=== PATIENT | female | born 1955 | race American Indian/Alaskan Native ===

== ENCOUNTER 2017-10-01 13:45 | Emergency (ER) | payer MEDICAID ==
[2017-10-01 14:14] VITALS: BP 150/93
[2017-10-01] MEDS ORDERED: Sodium Chloride 0.9% 1,000 ML IV SCH (14:15)
--- NOTE | 2017-10-01 14:15 | EDM.PDOC ---
ED HPI GENERAL MEDICAL PROBLEM - General Chief Complaint: General Stated Complaint: NO PHONE PAIN IN YOUR SIDE Time Seen by Provider: 10/01/17 14:08 Source of Information: Reports: Patient, Family () History Limitations: Reports: No Limitations - History of Present Illness INITIAL COMMENTS - FREE TEXT/NARRATIVE: 62 yo [place] Female c/o right side chest pain X one week w/ fever and unknown cause for pain. Per Daughter patient has Hx. of multiple rib fractures Onset Date: 09/24/17 Onset Time: 08:00 Duration: Day(s): Location: Reports: Chest (right side) Quality: Reports: Ache Severity: Moderate Improves with: Reports: Rest Worsens with: Reports: Movement Context: Reports: Other (unknown) Associated Symptoms: Reports: cough w sputum, Fever/Chills Right Abdominal Pain Score (Numeric/FACES): 10 - Related Data Allergies Allergy/AdvReac Type Severity Reaction Status Date / Time adhesive tape Allergy Rash Verified 10/01/17 14:00 oxycodone Allergy Nausea and Verified 10/01/17 14:00 Vomiting Penicillins Allergy Rash Verified 10/01/17 14:00 piperacillin sodium Allergy Rash Verified 10/01/17 14:00 [From Zosyn] tazobactam sodium Allergy Rash Verified 10/01/17 14:00 [From Zosyn] Home Meds: Home Meds Multivitamin [Multivitamins] 1 tab PO DAILY 06/23/14 [History] ALPRAZolam [Alprazolam] 0.5 mg PO ASDIRECTED PRN 05/13/16 [History] Acetaminophen 650 mg PO Q6HR PRN 05/13/16 [History] Albuterol Sulfate 2.5 mg IH Q4HR PRN 05/13/16 [History] Amiodarone HCl 200 mg PO DAILY 05/13/16 [History] Aspirin [Ecotrin] 81 mg PO DAILY 05/13/16 [History] DULoxetine [Cymbalta] 30 mg PO DAILY 05/13/16 [History] Formoterol [Perforomist] 20 mcg NEB BIDRT 05/13/16 [History] Furosemide 40 mg PO DAILY 05/13/16 [History] Pantoprazole [ProTONIX] 40 mg PO DAILY 05/13/16 [History] Potassium Chloride 10 meq PO DAILY 05/13/16 [History] Pregabalin [Lyrica] 50 mg PO TID 05/13/16 [History] Rivaroxaban [Xarelto] 20 mg PO DAILY 05/13/16 [History] Sennosides/Docusate Sodium [Senna S Tablet] 2 tab PO BID 05/13/16 [History] Simvastatin 10 mg PO BEDTIME 05/13/16 [History] Tiotropium [Spiriva HandiHaler] 18 mcg INH DAILY 05/13/16 [History] Vitamin B Complex [B Complex] 1 tab PO WITHLUNCH 05/13/16 [History] rOPINIRole HCl [Ropinirole HCl] 0.5 mg PO BEDTIME 05/13/16 [History] DULoxetine [Cymbalta] 60 mg PO DAILY 03/30/17 [History] rOPINIRole [Requip] 0.25 mg PO DAILY 03/30/17 [History] Past Medical History Cardiovascular History: Reports: Afib, CAD, Cardiomyopathy, Heart Failure, High Cholesterol, Hypertension, SOB on Exertion Respiratory History: Reports: Asthma, Bronchitis, Recurrent, COPD, Interstitial Lung Disease, Pneumonia, Recurrent, Sleep Apnea, SOB Gastrointestinal History: Reports: GERD Genitourinary History: Reports: Urinary Incontinence, Other (See Below) Other Genitourinary History: elevated BUN Other OB/BYN History: no Musculoskeletal History: Reports: Osteoarthritis Other Musculoskeletal History: chronic pain lower extremties, opoid dependence, ccomplete tear of rotator cuff, impaired activities of daily living Neurological History: Reports: CVA, Neuropathy, Diabetic Psychiatric History: Reports: Anxiety, Depression Endocrine/Metabolic History: Reports: Diabetes, Type II, IDDM, Obesity/BMI 30+ Hematologic History: Reports: Other (See Below) Other Hematologic History: leukocytosis Dermatologic History: Reports: Venous Stasis Dermatitis, Other (See Below) Other Dermatologic History: non-healing wounds to posterior right calf and abdominal folds. statis ulcers - Infectious Disease History Infectious Disease History: Reports: MRSA - Past Surgical History Cardiovascular Surgical History: Reports: Other (See Below) Social & Family History - Family History Family Medical History: Noncontributory - Tobacco Use Smoking Status *Q: Current Some Day Smoker Years of Tobacco use: 40 Packs/Tins Daily: 2 Used Tobacco, but Quit: Yes Month Tobacco Last Used: oct 2015 Second Hand Smoke Exposure: Yes - Caffeine Use Caffeine Use: Reports: Coffee, Soda - Alcohol Use Days Per Week of Alcohol Use: 0 - Recreational Drug Use Recreational Drug Use: No Drug Use in Last 12 Months: No - Living Situation & Occupation Living situation: Reports: , with Family Occupation: Disabled ED ROS GENERAL - Review of Systems Review Of Systems: See Below Constitutional: Reports: Fever HEENT: Reports: No Symptoms Respiratory: Reports: Cough, Sputum Cardiovascular: Reports: No Symptoms Endocrine: Reports: No Symptoms GI/Abdominal: Reports: No Symptoms : Reports: No Symptoms Musculoskeletal: Reports: Other (right chest wall) Skin: Reports: No Symptoms Neurological: Reports: No Symptoms Psychiatric: Reports: No Symptoms Hematologic/Lymphatic: Reports: No Symptoms Immunologic: Reports: No Symptoms ED EXAM, GENERAL - Physical Exam Exam: See Below Exam Limited By: No Limitations General Appearance: Alert, No Apparent Distress, Obese Eye Exam: Bilateral Eye: EOMI, PERRL Ears: Normal External Exam Nose: Normal Inspection, Normal Mucosa Throat/Mouth: Normal Inspection, Normal Lips Head: Atraumatic, Normocephalic Neck: Normal Inspection Respiratory/Chest: No Respiratory Distress, Rhonchi, Other (right side lateral chest wall tenderness) Cardiovascular: Normal Peripheral Pulses, Regular Rate, Rhythm, No Edema Peripheral Pulses: 2+: Radial (L), Radial (R) GI/Abdominal: Normal Bowel Sounds, Soft, Non-Tender Back Exam: Normal Inspection, Full Range of Motion Extremities: Normal Inspection, Normal Range of Motion Neurological: Alert, Oriented, CN II-XII Intact, Normal Cognition Psychiatric: Normal Affect, Normal Mood Skin Exam: Warm, Dry, Intact, Normal Color Lymphatic: No Adenopathy Course - Vital Signs Text/Narrative:: Chest CT - No Acute Changes + old rib fractures Labs and Urine Negative Last Recorded V/S: Last Vital Signs Temp 36.3 C 10/01/17 14:11 Pulse 92 10/01/17 14:11 Resp 18 10/01/17 14:11 BP 150/93 H 10/01/17 14:11 Pulse Ox 97 10/01/17 14:11 - Orders/Labs/Meds Orders: Active Orders 24 hr Category Date Time Status EKG Documentation Completion [RC] STAT Care 10/01/17 14:10 Active CULTURE BLOOD [BC] Stat Lab 10/01/17 14:30 Received CULTURE BLOOD [BC] Stat Lab 10/01/17 15:09 Received CULTURE SPUTUM + SMEAR [RM] Stat Lab 10/01/17 14:12 Uncollected Sodium Chloride 0.9% [Normal Saline] 1,000 ml Med 10/01/17 14:15 Active IV ASDIRECTED Medication Orders Sodium Chloride (Normal Saline) 1,000 mls @ 100 mls/hr IV ASDIRECTED DANIELLE Last Admin: 10/01/17 15:17 Dose: 100 mls/hr Labs: Laboratory Tests 10/01/17 10/01/17 10/01/17 Range/Units 14:30 14:30 14:30 WBC 11.9 H (5.0-10.0) 10^3/uL RBC 4.81 (4.2-5.4) 10^6/uL Hgb 14.2 (12.0-16.0) g/dL Hct 43.1 (37.0-47.0) % MCV 89.6 (80-100) fL MCH 29.5 (27.0-34.0) pg MCHC 32.9 L (33.0-35.0) g/dL Plt Count 292 D (150-450) 10^3/uL Neut % (Auto) 60.8 (42.2-75.2) % Lymph % (Auto) 27.5 (20.5-50.1) % [place] % (Auto) 9.0 H (2-8) % Eos % (Auto) 2.4 (1.0-3.0) % Baso % (Auto) 0.3 (0.0-1.0) % D-Dimer, Quantitative (0-400) ng/mL Sodium 137 (135-145) mmol/L Potassium 3.9 (3.6-5.0) mmol/L Chloride 100 L (101-111) mmol/L Carbon Dioxide 26.0 (21.0-31.0) mmol/L Anion Gap 14.9 BUN 15 (7-18) mg/dL Creatinine 0.7 (0.6-1.3) mg/dL Est Cr Clr Drug Dosing 70.70 mL/min Estimated GFR (MDRD) > 60 BUN/Creatinine Ratio 21.42 Glucose 93 (74-105) mg/dL Lactic Acid 0.6 (0.5-2.2) mmol/L Calcium 9.1 (8.4-10.2) mg/dl Total Bilirubin 0.3 (0.2-1.0) mg/dL AST 19 (10-42) IU/L ALT 15 (10-60) IU/L Alkaline Phosphatase 108 (42-121) IU/L Troponin I 0.02 (0.00-0.02) ng/ml Total Protein 7.9 (6.7-8.2) g/dl Albumin 4.0 (3.2-5.5) g/dl Globulin 3.9 Albumin/Globulin Ratio 1.03 Urine Color (YELLOW) Urine Appearance (CLEAR) Urine pH (5.0-9.0) Ur Specific [place] (1.005-1.030) Urine Protein (NEGATIVE) Urine Glucose (UA) (NEGATIVE) Urine Ketones (NEGATIVE) Urine Occult Blood (NEGATIVE) Urine Nitrite (NEGATIVE) Urine Bilirubin (NEGATIVE) Urine Urobilinogen (0.2-1.0) mg/dL Ur Leukocyte Esterase (NEGATIVE) Urine RBC /HPF Urine WBC (0-5/HPF) /HPF Ur Epithelial Cells /HPF Urine Bacteria (0-FEW/HPF) /HPF 10/01/17 10/01/17 Range/Units 14:30 15:18 WBC (5.0-10.0) 10^3/uL RBC (4.2-5.4) 10^6/uL Hgb (12.0-16.0) g/dL Hct (37.0-47.0) % MCV (80-100) fL MCH (27.0-34.0) pg MCHC (33.0-35.0) g/dL Plt Count (150-450) 10^3/uL Neut % (Auto) (42.2-75.2) % Lymph % (Auto) (20.5-50.1) % [place] % (Auto) (2-8) % Eos % (Auto) (1.0-3.0) % Baso % (Auto) (0.0-1.0) % D-Dimer, Quantitative < 100 (0-400) ng/mL Sodium (135-145) mmol/L Potassium (3.6-5.0) mmol/L Chloride (101-111) mmol/L Carbon Dioxide (21.0-31.0) mmol/L Anion Gap BUN (7-18) mg/dL Creatinine (0.6-1.3) mg/dL Est Cr Clr Drug Dosing mL/min Estimated GFR (MDRD) BUN/Creatinine Ratio Glucose (74-105) mg/dL Lactic Acid (0.5-2.2) mmol/L Calcium (8.4-10.2) mg/dl Total Bilirubin (0.2-1.0) mg/dL AST (10-42) IU/L ALT (10-60) IU/L Alkaline Phosphatase (42-121) IU/L Troponin I (0.00-0.02) ng/ml Total Protein (6.7-8.2) g/dl Albumin (3.2-5.5) g/dl Globulin Albumin/Globulin Ratio Urine Color Yellow (YELLOW) Urine Appearance Clear (CLEAR) Urine pH 7.0 (5.0-9.0) Ur Specific [place] 1.010 (1.005-1.030) Urine Protein Negative (NEGATIVE) Urine Glucose (UA) Negative (NEGATIVE) Urine Ketones Negative (NEGATIVE) Urine Occult Blood Negative (NEGATIVE) Urine Nitrite Negative (NEGATIVE) Urine Bilirubin Negative (NEGATIVE) Urine Urobilinogen 0.2 (0.2-1.0) mg/dL Ur Leukocyte Esterase Negative (NEGATIVE) Urine RBC Not seen /HPF Urine WBC Not seen (0-5/HPF) /HPF Ur Epithelial Cells Rare /HPF Urine Bacteria Rare (0-FEW/HPF) /HPF Meds: Medications Generic Name Dose Route Start Last Admin Trade Name Freq PRN Reason Stop Dose Admin Sodium Chloride 1,000 mls @ 100 mls/hr 10/01/17 14:15 10/01/17 15:17 Normal Saline IV 100 mls/hr ASDIRECTED DANIELLE Administration Discontinued Medications Generic Name Dose Route Start Last Admin Trade Name Freq PRN Reason Stop Dose Admin Hydromorphone HCl 1 mg 10/01/17 14:17 10/01/17 14:41 Dilaudid IVPUSH 10/01/17 14:18 1 mg ONETIME ONE Administration Departure - Departure Time of Disposition: 15:41 Disposition: Home, Self-Care 01 Condition: Good Clinical Impression: Right-sided chest wall pain, Muscle strain - Discharge Information Instructions: Pain Medicine Instructions, [id number] Forms: ED Department Discharge Additional Instructions: Rest Increase intake of Fluids ( Juice / Water) Apply Moist Heat to Right Lateral Chest Wall TID X 15 mins. No Lifting, Pulling or Pushing For right chest wall pain: TRAMADOL 50mg TID # 30 FLEXERIL 5mg BID # 20 MOTRIN 600mg TID w/ Food # 30 F/U w/ PCP - My Orders Last 24 Hours: My Active Orders 10/01/17 14:10 EKG Documentation Completion [RC] STAT 10/01/17 14:12 CULTURE SPUTUM + SMEAR [RM] Stat 10/01/17 14:15 Sodium Chloride 0.9% [Normal Saline] 1,000 ml IV ASDIRECTED 10/01/17 14:30 CULTURE BLOOD [BC] Stat 10/01/17 15:09 CULTURE BLOOD [BC] Stat - Assessment/Plan Last 24 Hours: My Active Orders 10/01/17 14:10 EKG Documentation Completion [RC] STAT 10/01/17 14:12 CULTURE SPUTUM + SMEAR [RM] Stat 10/01/17 14:15 Sodium Chloride 0.9% [Normal Saline] 1,000 ml IV ASDIRECTED 10/01/17 14:30 CULTURE BLOOD [BC] Stat 10/01/17 15:09 CULTURE BLOOD [BC] Stat
[2017-10-01] MEDS ORDERED: HYDROmorphone 1 MG/ML Syringe IVPUSH ONE (14:17)
[2017-10-01 15:35] LABS: CHLORIDE,CL 100 mmol/L (101-111); SODIUM,NA 137 mmol/L (135-145)
--- NOTE | 2017-10-05 09:16 | EKG ---
10/01/2017- DAVID GALLARDO - EKG per my reading shows sinus rhythm at a rate of [address] changes. [facility] /[id number]
== END 2017-10-01 16:00 | disposition home or self-care (01) ==
LOC: DL.ED 13:45
DX: S29.011A Strain of muscle and tendon of front wall of thorax, initial encounter (principal); F17.210 Nicotine dependence, cigarettes, uncomplicated; I11.0 Hypertensive heart disease with heart failure; I50.9 Heart failure, unspecified; K21.9 Gastro-esophageal reflux disease without esophagitis; E11.40 Type 2 diabetes mellitus with diabetic neuropathy, unspecified; F32.9 Major depressive disorder, single episode, unspecified; J44.9 Chronic obstructive pulmonary disease, unspecified; Z79.82 Long term (current) use of aspirin; Z79.899 Other long term (current) drug therapy; Z88.0 Allergy status to penicillin; Z88.6 Allergy status to analgesic agent; Z88.8 Allergy status to other drugs, medicaments and biological substances; Z91.048 Other nonmedicinal substance allergy status; X58.XXXA Exposure to other specified factors, initial encounter; E78.00 Pure hypercholesterolemia, unspecified
CPT/HCPCS: 36415; 71250; 80053; 81001; 83605; 84484; 85025; 85379; 87040; 93005; 96361; 96374; 99284; J1170; J7030

== ENCOUNTER 2019-08-04 14:20 | Inpatient (IN) | payer MEDICAID ==
[~2019-08-04 14:20] MED LIST: Sodium Chloride 0.9% 10 ML Syringe FLUSH PRN
--- NOTE | 2019-08-04 14:39 | EDM.PDOC ---
ED HPI GENERAL MEDICAL PROBLEM - General Chief Complaint: Skin Complaint Stated Complaint: AMBULANCE Time Seen by Provider: 08/04/19 14:20 Source of Information: Reports: Patient, EMS, EMS Notes Reviewed, Family, RN, RN Notes Reviewed History Limitations: Reports: Physical Impairment (right sided residual weakness from previous stroke (2014)) - History of Present Illness INITIAL COMMENTS - FREE TEXT/NARRATIVE: Pt to ER per [facility] with c/o cellulitis of the right upper thigh. States she woke up this morning with redness and tenderness to the right upper leg. Denies recent fever or chills. States she was vomiting last night. Denies chest pains. No increased SOB. States she has a hx of stroke in 2015, COPD, right sided residual weakness from stroke. Also states she has a chronic sore to the right lower leg from a spider bite 22 years ago. Denies pain. Onset: Today Duration: Constant, Getting Worse Location: Reports: Upper Extremity, Right - Related Data Allergies Allergy/AdvReac Type Severity Reaction Status Date / Time adhesive tape Allergy Rash Verified 08/04/19 14:23 oxycodone Allergy Nausea and Verified 08/04/19 14:23 Vomiting Penicillins Allergy Rash Verified 08/04/19 14:23 piperacillin sodium Allergy Rash Verified 08/04/19 14:23 [From Zosyn] tazobactam sodium Allergy Rash Verified 08/04/19 14:23 [From Zosyn] Home Meds: Home Meds Albuterol [Ventolin HFA] 1 puff INH Q4H PRN 06/04/19 [History] Amiodarone [Cordarone] 200 mg PO DAILY 06/04/19 [History] Aspirin [Halfprin] 81 mg PO DAILY 06/04/19 [History] DULoxetine [Cymbalta] 60 mg PO DAILY 06/04/19 [History] Furosemide [Lasix] 20 mg PO DAILY 06/04/19 [History] Potassium Chloride 10 meq PO DAILY 06/04/19 [History] Rivaroxaban [Xarelto] 20 mg PO DAILY 06/04/19 [History] Simvastatin 10 mg PO BEDTIME 06/04/19 [History] Tiotropium [Spiriva Handihaler] 1 puff INH BID 06/04/19 [History] Past Medical History Cardiovascular History: Reports: Afib, CAD, Cardiomyopathy, Heart Failure, High Cholesterol, Hypertension, SOB on Exertion Respiratory History: Reports: Asthma, Bronchitis, Recurrent, COPD, Interstitial Lung Disease, Pneumonia, Recurrent, Sleep Apnea, SOB Gastrointestinal History: Reports: GERD Genitourinary History: Reports: Urinary Incontinence, Other (See Below) Other Genitourinary History: elevated BUN Other SCHOOL PSYCHOLOGIST History: no Musculoskeletal History: Reports: Osteoarthritis Other Musculoskeletal History: chronic pain lower extremties, opoid dependence, ccomplete tear of rotator cuff, impaired activities of daily living Neurological History: Reports: CVA, Neuropathy, Diabetic Psychiatric History: Reports: Anxiety, Depression Endocrine/Metabolic History: Reports: Diabetes, Type II, IDDM, Obesity/BMI 30+ Hematologic History: Reports: Other (See Below) Other Hematologic History: leukocytosis Dermatologic History: Reports: Venous Stasis Dermatitis, Other (See Below) Other Dermatologic History: non-healing wounds to posterior right calf and abdominal folds. statis ulcers - Infectious Disease History Infectious Disease History: Reports: MRSA - Past Surgical History Cardiovascular Surgical History: Reports: Other (See Below) Social & Family History - Family History Family Medical History: Noncontributory - Caffeine Use Caffeine Use: Reports: Coffee, Soda - Living Situation & Occupation Living situation: Reports: , with Family Occupation: Disabled ED ROS GENERAL - Review of Systems Review Of Systems: ROS reveals no pertinent complaints other than HPI. ED EXAM, SKIN/RASH Exam: See Below Exam Limited By: Physical Impairment (residual right sided weakness from previous stroke) General Appearance: Alert, WD/WN, Mild Distress, Obese Eye Exam: Bilateral Eye: EOMI, Normal Inspection Ears: Normal External Exam, Hearing Grossly Normal Nose: Normal Inspection Throat/Mouth: Normal Inspection, Normal Voice, No Airway Compromise Head: Atraumatic Neck: Normal Inspection, Supple, Non-Tender, Full Range of Motion Respiratory/Chest: No Respiratory Distress, No Accessory Muscle Use, Chest Non- Tender, Crackles (left lower lobe) Cardiovascular: Normal Peripheral Pulses, Regular Rate, Rhythm, No Gallop, No JVD, No Murmur, No Rub, Other (ankle edema +2 bilaterally) Peripheral Pulses: 2+: Radial (L), Radial (R), Dorsalis Pedis (L), Dorsalis Pedis (R) GI/Abdominal: Normal Bowel Sounds, Soft, Non-Tender (Female) Exam: Deferred Rectal (Female) Exam: Deferred Back Exam: Normal Inspection, Decreased Range of Motion Extremities: Normal Inspection, Non-Tender, Normal Capillary Refill, Limited Range of Motion (right), Increased Warmth (right thigh), Redness (right thigh) Neurological: Alert, Oriented, CN II-XII Intact, Normal Cognition Psychiatric: Normal Affect, Normal Mood Skin: Warm, Dry, Intact, Erythema (right thigh), Increased Warmth (right thigh) Location, Skin: Lower Extremity, Right Characteristics: Erythematous Associated features: Warmth, Tenderness, Swelling Lymphatic: No Adenopathy Course - Vital Signs Last Recorded V/S: Last Vital Signs Temp 97.0 F 08/04/19 14:24 Pulse 73 08/04/19 14:24 Resp 16 08/04/19 14:24 BP 115/75 08/04/19 14:24 Pulse Ox 94 L 08/04/19 14:24 - Orders/Labs/Meds Orders: Active Orders 24 hr Category Date Time Status Admission Diagnosis [ADT] Routine ADT 08/04/19 15:22 Ordered Admission Status [Patient Status] [ADT] Routine ADT 08/04/19 15:22 Active Peripheral IV Care [RC] . DIRECTED Care 08/04/19 14:15 Active CULTURE BLOOD [BC] Stat Lab 08/04/19 14:25 Received CULTURE BLOOD [BC] Stat Lab 08/04/19 14:30 Received Sodium Chloride 0.9% [Saline Flush] Med 08/04/19 14:14 Active 10 ml FLUSH ASDIRECTED PRN Vancomycin 1.5 gm Med 08/04/19 15:18 Active Sodium Chloride 0.9% [Normal Saline] 250 ml IV ONETIME Blood Culture x2 Reflex Set [OM.PC] Stat Oth 08/04/19 14:14 Ordered Peripheral IV Insertion Adult [OM.PC] Stat Oth 08/04/19 14:14 Ordered Medication Orders Vancomycin HCl 1.5 gm/ Sodium (Chloride) 250 mls @ 167 mls/hr IV ONETIME ONE Stop: 08/04/19 16:47 Sodium Chloride (Saline Flush) 10 ml FLUSH ASDIRECTED PRN PRN Reason: Keep Vein Open Last Admin: 08/04/19 14:38 Dose: 10 ml Labs: Laboratory Tests 08/04/19 08/04/19 08/04/19 Range/Units 14:25 14:25 14:25 WBC 19.4 H (5.0-10.0) 10^3/uL RBC 4.85 (4.2-5.4) 10^6/uL Hgb 14.1 (12.0-16.0) g/dL Hct 44.1 (37.0-47.0) % MCV 90.9 (80-100) fL MCH 29.1 (27.0-34.0) pg MCHC 32.0 L (33.0-35.0) g/dL Plt Count 200 D (150-450) 10^3/uL Neut % (Auto) 79.4 H (42.2-75.2) % Lymph % (Auto) 14.7 L (20.5-50.1) % [place] % (Auto) 5.6 (2-8) % Eos % (Auto) 0.2 L (1.0-3.0) % Baso % (Auto) 0.1 (0.0-1.0) % D-Dimer, Quantitative (0-400) ng/mL Sodium 135 (135-145) mmol/L Potassium 3.3 L (3.6-5.0) mmol/L Chloride 98 L (101-111) mmol/L Carbon Dioxide 28.0 (21.0-31.0) mmol/L Anion Gap 12.3 BUN 22 H (7-18) mg/dL Creatinine 0.7 (0.6-1.3) mg/dL Est Cr Clr Drug Dosing 79.01 mL/min Estimated GFR (MDRD) > 60 BUN/Creatinine Ratio 31.42 Glucose 83 (74-105) mg/dL Lactic Acid 1.2 (0.5-2.2) mmol/L Calcium 8.7 (8.4-10.2) mg/dl Total Bilirubin 0.5 (0.2-1.0) mg/dL AST 16 (10-42) IU/L ALT 11 (10-60) IU/L Alkaline Phosphatase 87 (42-121) IU/L Total Protein 7.8 (6.7-8.2) g/dl Albumin 3.7 (3.2-5.5) g/dl Globulin 4.1 Albumin/Globulin Ratio 0.90 // Range/Units 14:25 WBC (5.0-10.0) 10^3/uL RBC (4.2-5.4) 10^6/uL Hgb (12.0-16.0) g/dL Hct (37.0-47.0) % MCV (80-100) fL MCH (27.0-34.0) pg MCHC (33.0-35.0) g/dL Plt Count (150-450) 10^3/uL Neut % (Auto) (42.2-75.2) % Lymph % (Auto) (20.5-50.1) % [place] % (Auto) (2-8) % Eos % (Auto) (1.0-3.0) % Baso % (Auto) (0.0-1.0) % D-Dimer, Quantitative < 100 (0-400) ng/mL Sodium (135-145) mmol/L Potassium (3.6-5.0) mmol/L Chloride (101-111) mmol/L Carbon Dioxide (21.0-31.0) mmol/L Anion Gap BUN (7-18) mg/dL Creatinine (0.6-1.3) mg/dL Est Cr Clr Drug Dosing mL/min Estimated GFR (MDRD) BUN/Creatinine Ratio Glucose (74-105) mg/dL Lactic Acid (0.5-2.2) mmol/L Calcium (8.4-10.2) mg/dl Total Bilirubin (0.2-1.0) mg/dL AST (10-42) IU/L ALT (10-60) IU/L Alkaline Phosphatase (42-121) IU/L Total Protein (6.7-8.2) g/dl Albumin (3.2-5.5) g/dl Globulin Albumin/Globulin Ratio Meds: Medications Generic Name Dose Route Start Last Admin Trade Name Freq PRN Reason Stop Dose Admin Vancomycin HCl 1.5 gm/ Sodium 250 mls @ 167 mls/hr 08/04/19 15:18 Chloride IV 08/04/19 16:47 ONETIME ONE Sodium Chloride 10 ml 08/04/19 14:14 08/04/19 14:38 Saline Flush FLUSH 10 ml ASDIRECTED PRN Administration Keep Vein Open - Radiology Interpretation Free Text/Narrative:: Chest xray: See rad report - Re-Assessments/Exams Free Text/Narrative Re-Assessment/Exam: 08/04/19 15:22 Discussed patient case with Dr. Moy who agreed to accept the patient for inpatient admission. Departure - Departure Time of Disposition: 15:25 Disposition: Admitted As Inpatient 68 Condition: Fair Clinical Impression: Cellulitis Qualifiers: Site of cellulitis: extremity Site of cellulitis of extremity: lower extremity Laterality: right Qualified Code(s): L03.115 - Cellulitis of right lower limb - Discharge Information *PRESCRIPTION DRUG MONITORING PROGRAM REVIEWED*: No *COPY OF PRESCRIPTION DRUG MONITORING REPORT IN PATIENT MULU: No Forms: ED Department Discharge - My Orders Last 24 Hours: My Active Orders 08/04/19 14:14 Sodium Chloride 0.9% [Saline Flush] 10 ml FLUSH ASDIRECTED PRN Blood Culture x2 Reflex Set [OM.PC] Stat Peripheral IV Insertion Adult [OM.PC] Stat 08/04/19 14:15 Peripheral IV Care [RC] . DIRECTED 08/04/19 14:25 CULTURE BLOOD [BC] Stat 08/04/19 14:30 CULTURE BLOOD [BC] Stat 08/04/19 15:18 Vancomycin 1.5 gm Sodium Chloride 0.9% [Normal Saline] 250 ml IV ONETIME 08/04/19 15:22 Admission Diagnosis [ADT] Routine Admission Status [Patient Status] [ADT] Routine - Assessment/Plan Last 24 Hours: My Active Orders 08/04/19 14:14 Sodium Chloride 0.9% [Saline Flush] 10 ml FLUSH ASDIRECTED PRN Blood Culture x2 Reflex Set [OM.PC] Stat Peripheral IV Insertion Adult [OM.PC] Stat 08/04/19 14:15 Peripheral IV Care [RC] . DIRECTED 08/04/19 14:25 CULTURE BLOOD [BC] Stat 08/04/19 14:30 CULTURE BLOOD [BC] Stat 08/04/19 15:18 Vancomycin 1.5 gm Sodium Chloride 0.9% [Normal Saline] 250 ml IV ONETIME 08/04/19 15:22 Admission Diagnosis [ADT] Routine Admission Status [Patient Status] [ADT] Routine
[2019-08-04 14:58] LABS: ANION GAP 12.3; CHLORIDE,CL 98 mmol/L (101-111); SODIUM,NA 135 mmol/L (135-145)
--- NOTE | 2019-08-04 15:22 | CR ---
EXAMINATION: Chest 1V Frontal SEX: Female AGE: 63 years CLINICAL HISTORY: 63-year-old morbidly obese female complaining of chest pain (emergency department). INTERPRETATION: 1. Generally poor inspiratory effort crowding and accentuating the cardiac silhouette but no new signs of alveolar edema, dependent pleural effusion, lung mass or focal lobar pneumonia when compared AP film 13 October 2016 or 02 July 2016. 2. Old healed posterior lateral upper left rib fracture. 3. Prominent proximal pulmonary artery segments. No new lung mass or focal lobar pneumonia. 4. No pneumothorax. CONCLUSION: No acute new cardiopulmonary abnormality.
[2019-08-04] MEDS ORDERED: Ondansetron 4 MG/2 ML SDV IV PRN (16:13)
[2019-08-04] MEDS ORDERED: Potassium Chloride 10 MEQ Tab.ER PO ONE ×3 (16:13→19:00)
[2019-08-04] MEDS ORDERED: Acetaminophen 325 MG Tab PO PRN (16:13)
[2019-08-04] MEDS ORDERED: Sodium Chloride 0.9% 10 ML Syringe FLUSH PRN (16:19)
[2019-08-04] MEDS: Insulin Lispro 100 Units/ML 3 ML Vial SUBCUT SCH ×2 (16:54→21:05)
[2019-08-04] MEDS ORDERED: VANCOMYCIN/WATER FOR INJ (PEG) 300 ML IV SCH (17:00)
--- NOTE | 2019-08-04 17:02 | PCM.HP ---
H&P History of Present Illness - General Date of Service: 08/04/19 Admit Problem/Dx: Admission Diagnosis/Problem Admission Diagnosis/Problem Cellulitis Source of Information: Patient ( ) History Limitations: Reports: Other (speech impediment, from residual stroke) - History of Present Illness Initial Comments - Free Text/Narative: 63 yo F with PMH of CVA with residual deficits, COPD, HTN, DM2, who presents with right inner thigh redness, pain, swelling. Patient noticed right inner thigh redness, pain, swelling this morning. Associated chills/fever. No chest pain, no SOB, no urinary symptoms. Also has fungal infection in skin creases of the groin In the ER, found to have leukocytosis, hypokalemia in lab work. She has had recurrent episodes of cellulitis in the past treated successfully with antibiotics. Improves with: Reports: None Worsens with: Reports: None Associated Symptoms: Reports: No Other Symptoms - Related Data Allergies/Adverse Reactions: Allergies Allergy/AdvReac Type Severity Reaction Status Date / Time adhesive tape Allergy Rash Verified 08/04/19 15:47 oxycodone Allergy Nausea and Verified 08/04/19 15:47 Vomiting Penicillins Allergy Rash Verified 08/04/19 15:47 piperacillin sodium Allergy Rash Verified 08/04/19 15:47 [From Zosyn] tazobactam sodium Allergy Rash Verified 08/04/19 15:47 [From Zosyn] Home Medications: Home Meds Albuterol [Ventolin HFA] 1 puff INH Q4H PRN 06/04/19 [History] Amiodarone [Cordarone] 200 mg PO DAILY 06/04/19 [History] Aspirin [Halfprin] 81 mg PO DAILY 06/04/19 [History] DULoxetine [Cymbalta] 60 mg PO DAILY 06/04/19 [History] Furosemide [Lasix] 20 mg PO DAILY 06/04/19 [History] Potassium Chloride 10 meq PO DAILY 06/04/19 [History] Rivaroxaban [Xarelto] 20 mg PO DAILY 06/04/19 [History] Simvastatin 10 mg PO BEDTIME 06/04/19 [History] Tiotropium [Spiriva Handihaler] 1 puff INH DAILY 06/04/19 [History] Cholecalciferol (Vitamin D3) [Vitamin D] 1 tab PO DAILY 08/04/19 [History] Fish Oil/[place]-3 Fatty Acids [Fish Oil 1,000 MG] 1 cap PO DAILY 08/04/19 [ History] Past Medical History HEENT History: Reports: Impaired Vision Cardiovascular History: Reports: Afib, CAD, Cardiomyopathy, Heart Failure, High Cholesterol, Hypertension, SOB on Exertion Respiratory History: Reports: Asthma, Bronchitis, Recurrent, COPD, Interstitial Lung Disease, Pneumonia, Recurrent, Sleep Apnea, SOB Gastrointestinal History: Reports: GERD Genitourinary History: Reports: Urinary Incontinence, Other (See Below) Other Genitourinary History: elevated BUN [employer] History: Reports: Other OB/BYN History: no Musculoskeletal History: Reports: Osteoarthritis Other Musculoskeletal History: chronic pain lower extremties, opoid dependence, ccomplete tear of rotator cuff, impaired activities of daily living Neurological History: Reports: CVA, Neuropathy, Diabetic Psychiatric History: Reports: Anxiety, Depression Endocrine/Metabolic History: Reports: Diabetes, Type II, IDDM, Obesity/BMI 30+ Hematologic History: Reports: Other (See Below) Other Hematologic History: leukocytosis Immunologic History: Reports: None Dermatologic History: Reports: Venous Stasis Dermatitis, Other (See Below) Other Dermatologic History: non-healing wounds to posterior right calf and abdominal folds. statis ulcers - Infectious Disease History Infectious Disease History: Reports: Chicken Pox, MRSA - Past Surgical History Other Cardiovascular Surgeries/Procedures: Patient denies CAD, cardiomyopathy, heart failure, high cholesterol, hypertension, and SOB- 08/04/19 Other Respiratory Surgeries/Procedures: Denies Asthma, bronchitis- 08/04/19 Other GI Surgeries/Procedures: denies gerd- 08/04/19 Other Endocrine Surgeries/Procedures: Denies DMII- 08-04-19 Other Neurological Surgeries/Procedures: Denies neuropathy Social & Family History - Family History Family Medical History: Noncontributory - Tobacco Use Smoking Status *Q: Current Every Day Smoker Years of Tobacco use: 40 Packs/Tins Daily: 1 Second Hand Smoke Exposure: Yes - Caffeine Use Caffeine Use: Reports: Tea - Recreational Drug Use Recreational Drug Use: No - Living Situation & Occupation Living situation: Reports: , with Family Occupation: Disabled H&P Review of Systems - Review of Systems: Review Of Systems: ROS reveals no pertinent complaints other than HPI. General: Reports: Fever HEENT: Reports: No Symptoms Pulmonary: Reports: No Symptoms Cardiovascular: Reports: No Symptoms Gastrointestinal: Reports: No Symptoms Genitourinary: Reports: No Symptoms Musculoskeletal: Reports: No Symptoms Skin: Reports: Rash Psychiatric: Reports: No Symptoms Neurological: Reports: No Symptoms Exam - Exam Exam: See Below - Vital Signs Vital Signs: Last Vital Signs Temp 35.9 C 08/04/19 16:20 Pulse 72 08/04/19 16:20 Resp 20 08/04/19 16:20 BP 110/55 L 08/04/19 16:20 Pulse Ox 94 L 08/04/19 16:20 Weight: 110.677 kg - Exam General: Alert, Oriented HEENT: Conjunctiva Clear Neck: Supple, Trachea Midline Lungs: Clear to Auscultation, Normal Respiratory Effort Cardiovascular: Regular Rate, Regular Rhythm, Normal S1, Normal S2 GI/Abdominal Exam: Normal Bowel Sounds, Soft, Non-Tender, No Organomegaly Extremities: Redness Skin: Rash Neuro Extensive - Mental Status: Alert, Oriented x3, Normal Mood/Affect, Normal Cognition, Memory Intact - Patient Data Lab Results Last 24 hrs: Laboratory Results - last 24 hr 08/04/19 08/04/19 08/04/19 Range/Units 14:25 14:25 14:25 WBC 19.4 H (5.0-10.0) 10^3/uL RBC 4.85 (4.2-5.4) 10^6/uL Hgb 14.1 (12.0-16.0) g/dL Hct 44.1 (37.0-47.0) % MCV 90.9 (80-100) fL MCH 29.1 (27.0-34.0) pg MCHC 32.0 L (33.0-35.0) g/dL Plt Count 200 D (150-450) 10^3/uL Neut % (Auto) 79.4 H (42.2-75.2) % Lymph % (Auto) 14.7 L (20.5-50.1) % Schleicher % (Auto) 5.6 (2-8) % Eos % (Auto) 0.2 L (1.0-3.0) % Baso % (Auto) 0.1 (0.0-1.0) % D-Dimer, Quantitative (0-400) ng/mL Sodium 135 (135-145) mmol/L Potassium 3.3 L (3.6-5.0) mmol/L Chloride 98 L (101-111) mmol/L Carbon Dioxide 28.0 (21.0-31.0) mmol/L Anion Gap 12.3 BUN 22 H (7-18) mg/dL Creatinine 0.7 (0.6-1.3) mg/dL Est Cr Clr Drug Dosing 79.01 mL/min Estimated GFR (MDRD) > 60 BUN/Creatinine Ratio 31.42 Glucose 83 (74-105) mg/dL POC Glucose (70-105) mg/dl Lactic Acid 1.2 (0.5-2.2) mmol/L Calcium 8.7 (8.4-10.2) mg/dl Total Bilirubin 0.5 (0.2-1.0) mg/dL AST 16 (10-42) IU/L ALT 11 (10-60) IU/L Alkaline Phosphatase 87 (42-121) IU/L Total Protein 7.8 (6.7-8.2) g/dl Albumin 3.7 (3.2-5.5) g/dl Globulin 4.1 Albumin/Globulin Ratio 0.90 08/04/19 08/04/19 Range/Units 14:25 16:44 WBC (5.0-10.0) 10^3/uL RBC (4.2-5.4) 10^6/uL Hgb (12.0-16.0) g/dL Hct (37.0-47.0) % MCV (80-100) fL MCH (27.0-34.0) pg MCHC (33.0-35.0) g/dL Plt Count (150-450) 10^3/uL Neut % (Auto) (42.2-75.2) % Lymph % (Auto) (20.5-50.1) % Schleicher % (Auto) (2-8) % Eos % (Auto) (1.0-3.0) % Baso % (Auto) (0.0-1.0) % D-Dimer, Quantitative < 100 (0-400) ng/mL Sodium (135-145) mmol/L Potassium (3.6-5.0) mmol/L Chloride (101-111) mmol/L Carbon Dioxide (21.0-31.0) mmol/L Anion Gap BUN (7-18) mg/dL Creatinine (0.6-1.3) mg/dL Est Cr Clr Drug Dosing mL/min Estimated GFR (MDRD) BUN/Creatinine Ratio Glucose (74-105) mg/dL POC Glucose 95 (70-105) mg/dl Lactic Acid (0.5-2.2) mmol/L Calcium (8.4-10.2) mg/dl Total Bilirubin (0.2-1.0) mg/dL AST (10-42) IU/L ALT (10-60) IU/L Alkaline Phosphatase (42-121) IU/L Total Protein (6.7-8.2) g/dl Albumin (3.2-5.5) g/dl Globulin Albumin/Globulin Ratio Result Diagrams: 08/04/19 14:25 08/04/19 14:25 Problem List Initiated/Reviewed/Updated: Yes Orders Last 24hrs: Active Orders 24 hr Category Date Time Status Admission Diagnosis [ADT] Routine ADT 08/04/19 15:22 Ordered Admission Status [Patient Status] [ADT] Routine ADT 08/04/19 15:22 Active Accu Check [Blood Glucose Check, Bedside] [RC] Care 08/04/19 16:20 Ordered QIDACANDBED Ambulate [RC] ASDIRECTED Care 08/04/19 16:20 Ordered Height and Weight [RC] DAILY Care 08/04/19 16:20 Ordered Oxygen Therapy [RC] PRN Care 08/04/19 16:20 Ordered Peripheral IV Care [RC] . DIRECTED Care 08/04/19 16:20 Ordered Up With Assistance [RC] ASDIRECTED Care 08/04/19 16:20 Ordered VTE/DVT Education [RC] PER UNIT ROUTINE Care 08/04/19 16:20 Ordered Vital Signs [RC] Q4H Care 08/04/19 16:20 Ordered Regular Diet [DIET] Diet 08/04/19 Breakfast Ordered BASIC METABOLIC PANEL,BMP [CHEM] AM Lab 08/05/19 05:11 Ordered BASIC METABOLIC PANEL,BMP [CHEM] AM Lab 08/06/19 05:11 Ordered BASIC METABOLIC PANEL,BMP [CHEM] AM Lab 08/07/19 05:11 Ordered CBC W/O DIFF,HEMOGRAM [HEME] AM Lab 08/05/19 05:11 Ordered CBC W/O DIFF,HEMOGRAM [HEME] AM Lab 08/06/19 05:11 Ordered CBC W/O DIFF,HEMOGRAM [HEME] AM Lab 08/07/19 05:11 Ordered CULTURE BLOOD [BC] Stat Lab 08/04/19 14:25 Received CULTURE BLOOD [BC] Stat Lab 08/04/19 14:30 Received MAGNESIUM [CHEM] AM Lab 08/05/19 05:11 Ordered MAGNESIUM [CHEM] AM Lab 08/06/19 05:11 Ordered MAGNESIUM [CHEM] AM Lab 08/07/19 05:11 Ordered PHOSPHORUS [CHEM] AM Lab 08/05/19 05:11 Ordered PHOSPHORUS [CHEM] AM Lab 08/06/19 05:11 Ordered PHOSPHORUS [CHEM] AM Lab 08/07/19 05:11 Ordered VANCOMYCIN TROUGH [CHEM] Routine Lab 08/06/19 16:30 Ordered Acetaminophen [Tylenol] Med 08/04/19 16:13 Ordered 650 mg PO Q4H PRN Amiodarone [Cordarone] Med 08/05/19 09:00 Ordered 200 mg PO DAILY Aspirin [Halfprin] Med 08/05/19 09:00 Ordered 81 mg PO DAILY Cholecalciferol (Vitamin D3) Med 08/05/19 09:00 Ordered 1 tab PO DAILY Clotrimazole [Lotrimin AF 1% Crm] Med 08/04/19 17:00 Ordered 1 gm TOP BID DULoxetine [Cymbalta] Med 08/05/19 09:00 Ordered 60 mg PO DAILY Fish Oil/[place]-3 Fatty Acids [Fish Oil 1,000 MG] Med 08/05/19 09:00 Ordered 1 cap PO DAILY Furosemide [Lasix] Med 08/05/19 09:00 Ordered 20 mg PO DAILY Insulin Lispro [HumaLOG] Med 08/04/19 17:00 Ordered See Protocol SUBCUT QIDACANDBED Ondansetron [Zofran] Med 08/04/19 16:13 Ordered 4 mg IV Q4H PRN Pharmacy to Dose - Vancomycin Med 08/04/19 16:30 Ordered 1 dose .XX ASDIRECTED Rivaroxaban [Xarelto] Med 08/05/19 09:00 Ordered 20 mg PO DAILY Simvastatin [Zocor] Med 08/04/19 21:00 Ordered 10 mg PO BEDTIME Sodium Chloride 0.9% [Normal Saline] 1,000 ml Med 08/04/19 16:15 Ordered IV ASDIRECTED Sodium Chloride 0.9% [Saline Flush] Med 08/04/19 14:14 Active 10 ml FLUSH ASDIRECTED PRN Sodium Chloride 0.9% [Saline Flush] Med 08/04/19 16:19 Ordered 10 ml FLUSH ASDIRECTED PRN Sodium Chloride 0.9% [Saline Flush] Med 08/04/19 16:19 Ordered 10 ml FLUSH ASDIRECTED PRN Tiotropium [Spiriva HandiHaler] Med 08/05/19 09:00 Ordered 1 puff INH DAILY Vancomycin/Water For Inj (Peg) [Vancomycin 1.5 GM/300 Med 08/04/19 17:00 Active ML Bag] 300 ml IV Q12H Blood Culture x2 Reflex Set [OM.PC] Stat Oth 08/04/19 14:14 Ordered Peripheral IV Insertion Adult [OM.PC] Routine Oth 08/04/19 16:20 Ordered Peripheral IV Insertion Adult [OM.PC] Stat Oth 08/04/19 14:14 Ordered Saline Lock Insert [OM.PC] Routine Oth 08/04/19 16:20 Ordered Resuscitation Status Routine Resus Stat 08/04/19 16:19 Ordered Medication Orders Acetaminophen (Tylenol) 650 mg PO Q4H PRN PRN Reason: Pain/Fever Amiodarone HCl (Cordarone) 200 mg PO DAILY [facility] Aspirin (Halfprin) 81 mg PO DAILY [facility] Cholecalciferol (Vitamin D3) 125 mcg PO DAILY [facility] Clotrimazole (Lotrimin Af 1% Crm) 0 gm TOP BID [facility] Duloxetine HCl (Cymbalta) 60 mg PO DAILY [facility] Furosemide (Lasix) 20 mg PO DAILY [facility] Sodium Chloride (Normal Saline) 1,000 mls @ 100 mls/hr IV ASDIRECTED DANIELLE Vancomycin HCl (Vancomycin 1.5 Gm/300 Ml Bag) 300 mls @ 150 mls/hr IV Q12H [facility] Insulin Human Lispro (Humalog) 0 unit SUBCUT QIDACANDBED [facility]; Protocol Last Admin: 08/04/19 16:54 Dose: Not Given Non-Formulary Medication (Fish Oil/[place]-3 Fatty Acids [Fish Oil 1,000 Mg]) 1 cap PO DAILY [facility] Ondansetron HCl (Zofran) 4 mg IV Q4H PRN PRN Reason: Nausea/Vomiting Rivaroxaban (Xarelto) 20 mg PO DAILY [facility] Simvastatin (Zocor) 10 mg PO BEDTIME [facility] Sodium Chloride (Saline Flush) 10 ml FLUSH ASDIRECTED PRN PRN Reason: Keep Vein Open Last Admin: 08/04/19 14:38 Dose: 10 ml Sodium Chloride (Saline Flush) 10 ml FLUSH ASDIRECTED PRN PRN Reason: Keep Vein Open Sodium Chloride (Saline Flush) 10 ml FLUSH ASDIRECTED PRN PRN Reason: Keep Vein Open Tiotropium [place] (Spiriva Handihaler) 18 mcg INH DAILY [facility] Vancomycin HCl (Pharmacy To Dose - Vancomycin) 1 dose .XX ASDIRECTED [facility] Assessment/Plan Comment:: #right thigh cellulitis #Leucocytosis, fever: Sepsis IV vanc IV fluid hydration f/u bld cx monitor vital signs closely #Tinea inguinalis -clotrimazole cream #HTN continue home meds #Hx of afib continue metoprolol, xarelto #Hx of DM ISS, accuchecks hold home metoprolol carb consistent diet #Hx of COPD stable, not in exacerbation PRN duonebs continue tiotropium daily #DVT ppx on xarelto #Full code
[2019-08-04] MEDS: Clotrimazole 1% Crm 30 GM Tube TOP SCH ×2 (18:25→21:07)
[2019-08-04] MEDS: Sodium Chloride 0.9% 1,000 ML IV SCH (19:43)
[2019-08-04] MEDS ORDERED: Simvastatin 10 MG Tab PO SCH (21:00)
[2019-08-05] MEDS ORDERED: VANCOMYCIN/WATER FOR INJ (PEG) 300 ML IV SCH (03:00)
[2019-08-05 06:44] LABS: ANION GAP 11.6; CHLORIDE,CL 104 mmol/L (101-111); SODIUM,NA 137 mmol/L (135-145)
[2019-08-05] MEDS: Sodium Chloride 0.9% 1,000 ML IV SCH (08:08)
[2019-08-05] MEDS: Aspirin 81 MG Tab.EC PO SCH (08:10)
[2019-08-05] MEDS: Furosemide 20 MG Tab PO SCH (08:10)
[2019-08-05] MEDS: Amiodarone 200 MG Tab PO SCH (08:10)
[2019-08-05] MEDS: DULoxetine 30 MG Cap PO SCH (08:10)
[2019-08-05] MEDS: Rivaroxaban 10 MG Tab PO SCH (08:10)
[2019-08-05] MEDS ORDERED: Non-Formulary Medication 1 Each (Fish Oil/Omega-3 Fatty Acids [Fish Oil 1,000 Mg] 1 CAP) PO SCH (09:00)
[2019-08-05] MEDS: Clotrimazole 1% Crm 30 GM Tube TOP SCH ×2 (09:26→20:44)
[2019-08-05] MEDS: Tiotropium Inhaler 18 MCG Inhalation Powder Cap Kit of 5 INH SCH (09:26)
[2019-08-05] MEDS: Insulin Lispro 100 Units/ML 3 ML Vial SUBCUT SCH ×4 (09:43→21:00)
[2019-08-05] MEDS: Cholecalciferol (Vitamin D3) 25 MCG Tab PO SCH (10:57)
[2019-08-05] MEDS ORDERED: diphenhydrAMINE 50 MG Cap PO SCH (14:30)
[2019-08-05] MEDS ORDERED: VANCOMYCIN/WATER FOR INJ (PEG) 1.5 GM in Premix Bag 1 BAG IV SCH (15:00)
[2019-08-05] MEDS ORDERED: Sodium Chloride 0.9% 10 ML Syringe FLUSH PRN (15:56)
[2019-08-05] MEDS ORDERED: methylPREDNISolone Sodium Succinate 125 MG/2 ML SDV IVPUSH ONE (19:35)
[2019-08-05] MEDS ORDERED: hydrOXYzine HCl 25 MG Tab PO PRN (19:35)
[2019-08-06 06:34] LABS: ANION GAP 10.8; CHLORIDE,CL 108 mmol/L (101-111); SODIUM,NA 140 mmol/L (135-145)
[2019-08-06] MEDS: Insulin Lispro 100 Units/ML 3 ML Vial SUBCUT SCH ×4 (08:45→20:51)
[2019-08-06] MEDS ORDERED: DAPTOmycin 500 MG Vial IV SCH (09:45)
[2019-08-06] MEDS: Cholecalciferol (Vitamin D3) 25 MCG Tab PO SCH (09:49)
[2019-08-06] MEDS: Rivaroxaban 10 MG Tab PO SCH (09:49)
[2019-08-06] MEDS: Furosemide 20 MG Tab PO SCH (09:50)
[2019-08-06] MEDS: DULoxetine 30 MG Cap PO SCH (09:50)
[2019-08-06] MEDS: Aspirin 81 MG Tab.EC PO SCH (09:51)
[2019-08-06] MEDS: Amiodarone 200 MG Tab PO SCH (09:51)
[2019-08-06] MEDS: Tiotropium Inhaler 18 MCG Inhalation Powder Cap Kit of 5 INH SCH (10:09)
[2019-08-06] MEDS: Clotrimazole 1% Crm 30 GM Tube TOP SCH ×2 (10:10→20:56)
--- NOTE | 2019-08-06 11:24 | PCM.PN ---
- General Info Date of Service: 08/06/19 Admission Dx/Problem (Free Text): Admission Diagnosis/Problem Admission Diagnosis/Problem Cellulitis of right inner Thigh Subjective Update: Pt was seen in room, doing well, No fever or chill, appetite is good, she had developed rash all over her body yesterday with Vancomycin and It is much better today and the the erythema on her right ineer thigh is also improving. Functional Status: Reports: Pain Controlled, Tolerating Diet, Ambulating, Urinating - Review of Systems General: Reports: Weakness, Appetite (good). Denies: Fever, Chills HEENT: Denies: Headaches, Sinus Congestion, Sore Throat, Visual Changes Pulmonary: Denies: Shortness of Breath, Cough, Sputum, Wheezing Cardiovascular: Denies: Chest Pain, Dyspnea on Exertion, Edema, Lightheadedness Gastrointestinal: Reports: Decreased Appetite. Denies: Abdominal Pain, Diarrhea , Nausea, Vomiting Genitourinary: Denies: Dysuria, Frequency, Burning, Urgency, Flank Pain Musculoskeletal: Denies: Neck Pain, Shoulder Pain, Foot Pain, Joint Pain Skin: Reports: Rash. Denies: Cyanosis, Jaundice, Bruising, Pruritis Neurological: Denies: Confusion, Headache, Numbness, Tingling, Tremors Psychiatric: Denies: Confusion, Anxiety - Patient Data Vitals - Most Recent: Last Vital Signs Temp 35.7 C 08/06/19 08:00 Pulse 67 08/06/19 08:00 Resp 08/06/19 08:00 BP 171/72 H 08/06/19 08:00 Pulse Ox 98 08/06/19 08:00 Weight - Most Recent: 111.754 kg I&O - Last 24 Hours: Intake & Output 08/05/19 08/06/19 08/06/19 22:59 06:59 14:59 Intake Total 840 438 Balance 840 438 Lab Results Last 24 Hours: Laboratory Results - last 24 hr 08/05/19 08/05/19 08/05/19 Range/Units 11:50 16:31 20:40 WBC (5.0-10.0) 10^3/uL RBC (4.2-5.4) 10^6/uL Hgb (12.0-16.0) g/dL Hct (37.0-47.0) % MCV (80-100) fL MCH (27.0-34.0) pg MCHC (33.0-35.0) g/dL Plt Count (150-450) 10^3/uL Sodium (135-145) mmol/L Potassium (3.6-5.0) mmol/L Chloride (101-111) mmol/L Carbon Dioxide (21.0-31.0) mmol/L Anion Gap BUN (7-18) mg/dL Creatinine (0.6-1.3) mg/dL Est Cr Clr Drug Dosing mL/min Estimated GFR (MDRD) Glucose (74-105) mg/dL POC Glucose 84 124 H 89 (70-105) mg/dl Calcium (8.4-10.2) mg/dl Phosphorus (2.5-4.6) mg/dL Magnesium (1.8-2.5) mg/dL 08/06/19 08/06/19 08/06/19 Range/Units 05:55 05:55 07:49 WBC 11.4 H (5.0-10.0) 10^3/uL RBC 4.45 (4.2-5.4) 10^6/uL Hgb 13.1 (12.0-16.0) g/dL Hct 40.8 (37.0-47.0) % MCV 91.7 (80-100) fL MCH 29.4 (27.0-34.0) pg MCHC 32.1 L (33.0-35.0) g/dL Plt Count 212 (150-450) 10^3/uL Sodium 140 (135-145) mmol/L Potassium 3.8 (3.6-5.0) mmol/L Chloride 108 (101-111) mmol/L Carbon Dioxide 25.0 (21.0-31.0) mmol/L Anion Gap 10.8 BUN 17 (7-18) mg/dL Creatinine 0.8 (0.6-1.3) mg/dL Est Cr Clr Drug Dosing 69.13 mL/min Estimated GFR (MDRD) > 60 Glucose 143 H (74-105) mg/dL POC Glucose 133 H (70-105) mg/dl Calcium 8.6 (8.4-10.2) mg/dl Phosphorus 3.1 (2.5-4.6) mg/dL Magnesium 1.9 (1.8-2.5) mg/dL [place] Results Last 24 Hours: Microbiology 08/04/19 14:30 Aerobic Blood Culture - Preliminary Blood - Venous - Lab Draw NO GROWTH AFTER 1 DAY Anaerobic Blood Culture - Preliminary NO GROWTH AFTER 1 DAY 08/04/19 14:25 Aerobic Blood Culture - Preliminary Blood - Venous NO GROWTH AFTER 1 DAY Anaerobic Blood Culture - Preliminary NO GROWTH AFTER 1 DAY Med Orders - Current: Current Medications Acetaminophen (Tylenol) 650 mg PO Q4H PRN PRN Reason: Pain/Fever Amiodarone HCl (Cordarone) 200 mg PO DAILY [facility] Last Admin: 08/06/19 09:51 Dose: 200 mg Aspirin (Halfprin) 81 mg PO DAILY [facility] Last Admin: 08/06/19 09:51 Dose: 81 mg Cholecalciferol (Vitamin D3) 125 mcg PO DAILY [facility] Last Admin: 08/06/19 09:49 Dose: 125 mcg Clotrimazole (Lotrimin Af 1% Crm) 0 gm TOP BID [facility] Last Admin: 08/06/19 10:10 Dose: 1 applic Duloxetine HCl (Cymbalta) 60 mg PO DAILY [facility] Last Admin: 08/06/19 09:50 Dose: 60 mg Furosemide (Lasix) 20 mg PO DAILY [facility] Last Admin: 08/06/19 09:50 Dose: 20 mg Hydroxyzine HCl (Atarax) 25 mg PO Q6H PRN PRN Reason: Itching Last Admin: 08/05/19 19:59 Dose: 25 mg Daptomycin 450 mg/ Sodium (Chloride) 50 mls @ 100 mls/hr IV Q24H [facility] Stop: 08/08/19 10:01 Last Infusion: 08/06/19 10:30 Dose: Infused Insulin Human Lispro (Humalog) 0 unit SUBCUT QIDACANDBED [facility]; Protocol Last Admin: 08/06/19 08:45 Dose: Not Given Ondansetron HCl (Zofran) 4 mg IV Q4H PRN PRN Reason: Nausea/Vomiting Rivaroxaban (Xarelto) 20 mg PO DAILY [facility] Last Admin: 08/06/19 09:49 Dose: 20 mg Sodium Chloride (Saline Flush) 10 ml FLUSH ASDIRECTED PRN PRN Reason: Keep Vein Open Sodium Chloride (Saline Flush) 10 ml FLUSH ASDIRECTED PRN PRN Reason: Keep Vein Open Tiotropium [place] (Spiriva Handihaler) 18 mcg INH DAILY [facility] Last Admin: 08/06/19 10:09 Dose: 18 mcg Discontinued Medications Daptomycin (Cubicin) 450 mg 4 mg/kg (450 mg) IV Q24H [facility] Stop: 08/08/19 09:46 Diphenhydramine HCl (Benadryl) 50 mg PO Q12H [facility] Last Admin: 08/05/19 15:34 Dose: 50 mg Vancomycin HCl 1.5 gm/ Sodium (Chloride) 250 mls @ 167 mls/hr IV ONETIME ONE Stop: 08/04/19 16:47 Last Admin: 08/04/19 15:36 Dose: 167 mls/hr Sodium Chloride (Normal Saline) 1,000 mls @ 100 mls/hr IV ASDIRECTED [facility] Last Admin: 08/05/19 08:08 Dose: 100 mls/hr Vancomycin HCl (Vancomycin 1.5 Gm/300 Ml Bag) 300 mls @ 150 mls/hr IV Q12H [facility] Last Admin: 08/04/19 16:59 Dose: Not Given Vancomycin HCl (Vancomycin 1.5 Gm/300 Ml Bag) 300 mls @ 150 mls/hr IV Q12H [facility] Last Infusion: 08/05/19 05:31 Dose: Infused Vancomycin HCl 1.5 gm/ Premix 300 mls @ 150 mls/hr IV Q12H [facility] Last Infusion: 08/05/19 16:04 Dose: 100 mls/hr Methylprednisolone Sodium Succinate (Solu-Medrol) 125 mg IVPUSH ONETIME ONE Stop: 08/05/19 19:36 Last Admin: 08/05/19 19:54 Dose: 125 mg Non-Formulary Medication (Fish Oil/[place]-3 Fatty Acids [Fish Oil 1,000 Mg]) 1 cap PO DAILY [facility] Potassium Chloride (Klor-Con 10) 40 meq PO ONETIME ONE Stop: 08/04/19 16:14 Last Admin: 08/04/19 19:42 Dose: Not Given Potassium Chloride (Klor-Con 10) 40 meq PO ONETIME ONE Stop: 08/04/19 19:01 Potassium Chloride (Klor-Con 10) 40 meq PO ONETIME ONE Stop: 08/04/19 19:01 Last Admin: 08/04/19 19:42 Dose: 40 meq Simvastatin (Zocor) 10 mg PO BEDTIME [facility] Last Admin: 08/04/19 21:08 Dose: 10 mg Sodium Chloride (Saline Flush) 10 ml FLUSH ASDIRECTED PRN PRN Reason: Keep Vein Open Last Admin: 08/04/19 14:38 Dose: 10 ml Vancomycin HCl (Pharmacy To Dose - Vancomycin) 1 dose .XX ASDIRECTED DANIELLE - Exam Quality Assessment: DVT Prophylaxis. No: Supplemental Oxygen, Central Line/PICC , Urine Catheter General: Alert, Oriented, Cooperative, No Acute Distress HEENT: Pupils Equal, EOMI, Mucous Membr. Moist/[place] Neck: No JVD, No Thyromegaly. No: Lymphadenopathy Lungs: Clear to Auscultation, Normal Respiratory Effort Cardiovascular: Irregular Rhythm GI/Abdominal Exam: Normal Bowel Sounds, Soft, Non-Tender, No Distention (Female) Exam: Deferred Back Exam: Normal Inspection Extremities: Normal Inspection, No Pedal Edema, Other (Right Inner thigh erythema and warm to touch) Skin: Warm, Dry, Intact Neurological: No New Focal Deficit Psy/Mental Status: Alert, Normal Affect, Normal Mood - Problem List Review Problem List Initiated/Reviewed/Updated: Yes - Plan Plan:: This is a 63 yo F with PMH of CVA with residual deficits, COPD, HTN, DM2, who presents with right inner thigh redness, pain, swelling and she also had fever and chill. She also has fungal infection in skin creases of the groin In the ER, found to have leukocytosis, She has had recurrent episodes of cellulitis in the past treated successfully with antibiotics. Impression and Plan: 1. Right thigh cellulitis: Pt had recation to Vancomycin ( Beryl syndrome) -Leukocytosis is Improving -Stopped vancomycin and will start IV Daptomycin -f/u blood culture 2. Tinea inguinalis -Continue clotrimazole cream 3. Hypertension: BP is acceptable and currently she is not on any medication 4. Chronic afib: Continue Amiodarone, rate is will controlled and continue xarelto 5. Diabetes II ( Insulin Dependent) - Continue Accuchecks - Continue carb consistent diet -Continue Insulin 6. History of COPD - stable, not in exacerbation -Continue PRN duonebs - continue tiotropium daily 7. GI Prophylaxis: Continue protonix 8. DVT prophylaxis: she is on xarelto Code Status: Full code
[2019-08-07 06:38] LABS: ANION GAP 9.4; CHLORIDE,CL 108 mmol/L (101-111); SODIUM,NA 141 mmol/L (135-145)
[2019-08-07] MEDS: Tiotropium Inhaler 18 MCG Inhalation Powder Cap Kit of 5 INH SCH (09:14)
[2019-08-07] MEDS: Cholecalciferol (Vitamin D3) 25 MCG Tab PO SCH (09:15)
[2019-08-07] MEDS: DULoxetine 30 MG Cap PO SCH (09:16)
[2019-08-07] MEDS: Furosemide 20 MG Tab PO SCH (09:17)
[2019-08-07] MEDS: Amiodarone 200 MG Tab PO SCH (09:17)
[2019-08-07] MEDS: Rivaroxaban 10 MG Tab PO SCH (09:17)
[2019-08-07] MEDS: Aspirin 81 MG Tab.EC PO SCH (09:17)
[2019-08-07] MEDS: Clotrimazole 1% Crm 30 GM Tube TOP SCH ×2 (09:18→20:28)
[2019-08-07] MEDS: Sodium Chloride 0.9% 10 ML Syringe FLUSH PRN ×2 (09:19→10:34)
[2019-08-07] MEDS ORDERED: Potassium Chloride 10 MEQ Tab.ER PO ONE (09:47)
[2019-08-07] MEDS: Insulin Lispro 100 Units/ML 3 ML Vial SUBCUT SCH ×4 (09:56→20:50)
[2019-08-07] MEDS: Clindamycin Phosphate 600 MG in Sodium Chloride 0.9% 100 ML IV SCH ×2 (10:34→17:37)
--- NOTE | 2019-08-07 10:55 | PCM.PN ---
- General Info Date of Service: 08/07/19 Admission Dx/Problem (Free Text): Admission Diagnosis/Problem Admission Diagnosis/Problem Cellulitis of right inner Thigh Subjective Update: Pt was seen in room, doing well, No fever or chill, appetite is good, she had developed rash all over her body on 08/05/19 with Vancomycin and It is much better today and the the erythema on her right inner thigh is also improving. Functional Status: Reports: Pain Controlled, Tolerating Diet, Ambulating, Urinating - Review of Systems General: Reports: Weakness, Appetite (acceptable). Denies: Fever, Chills HEENT: Denies: Headaches, Sinus Congestion, Sore Throat Pulmonary: Reports: Cough, Sputum. Denies: Shortness of Breath, Wheezing Cardiovascular: Denies: Chest Pain, Dyspnea on Exertion, Edema Gastrointestinal: Denies: Abdominal Pain, Diarrhea, Difficulty Swallowing, Nausea, Vomiting Genitourinary: Denies: Dysuria, Burning, Urgency, Flank Pain Musculoskeletal: Denies: Neck Pain, Arm Pain, Hand Pain, Joint Pain Skin: Denies: Cyanosis, Jaundice, Bruising, Pruritis, Rash Neurological: Denies: Confusion, Numbness Psychiatric: Reports: No Symptoms - Patient Data Vitals - Most Recent: Last Vital Signs Temp 35.8 C 08/07/19 08:00 Pulse 75 08/07/19 08:00 Resp 18 08/07/19 08:00 BP 141/75 H 08/07/19 08:00 Pulse Ox 96 08/07/19 08:00 Weight - Most Recent: 113.171 kg I&O - Last 24 Hours: Intake & Output 08/06/19 08/07/19 08/07/19 22:59 06:59 14:59 Intake Total 120 82 Balance 120 82 Lab Results Last 24 Hours: Laboratory Results - last 24 hr 08/06/19 08/06/19 08/06/19 Range/Units 11:11 16:48 20:37 WBC (5.0-10.0) 10^3/uL RBC (4.2-5.4) 10^6/uL Hgb (12.0-16.0) g/dL Hct (37.0-47.0) % MCV (80-100) fL MCH (27.0-34.0) pg MCHC (33.0-35.0) g/dL Plt Count (150-450) 10^3/uL Sodium (135-145) mmol/L Potassium (3.6-5.0) mmol/L Chloride (101-111) mmol/L Carbon Dioxide (21.0-31.0) mmol/L Anion Gap BUN (7-18) mg/dL Creatinine (0.6-1.3) mg/dL Est Cr Clr Drug Dosing mL/min Estimated GFR (MDRD) Glucose (74-105) mg/dL POC Glucose 134 H 109 H 141 H (70-105) mg/dl Calcium (8.4-10.2) mg/dl Phosphorus (2.5-4.6) mg/dL Magnesium (1.8-2.5) mg/dL 08/07/19 08/07/19 08/07/19 Range/Units 05:50 05:50 07:46 WBC 14.2 H (5.0-10.0) 10^3/uL RBC 4.45 (4.2-5.4) 10^6/uL Hgb 13.0 (12.0-16.0) g/dL Hct 40.7 (37.0-47.0) % MCV 91.5 (80-100) fL MCH 29.2 (27.0-34.0) pg MCHC 31.9 L (33.0-35.0) g/dL Plt Count 244 (150-450) 10^3/uL Sodium 141 (135-145) mmol/L Potassium 3.4 L (3.6-5.0) mmol/L Chloride 108 (101-111) mmol/L Carbon Dioxide 27.0 (21.0-31.0) mmol/L Anion Gap 9.4 BUN 26 H (7-18) mg/dL Creatinine 0.8 (0.6-1.3) mg/dL Est Cr Clr Drug Dosing 69.13 mL/min Estimated GFR (MDRD) > 60 Glucose 100 (74-105) mg/dL POC Glucose 94 (70-105) mg/dl Calcium 8.7 (8.4-10.2) mg/dl Phosphorus 3.5 (2.5-4.6) mg/dL Magnesium 1.9 (1.8-2.5) mg/dL Loki Results Last 24 Hours: Microbiology 08/04/19 14:30 Aerobic Blood Culture - Preliminary Blood - Venous - Lab Draw NO GROWTH AFTER 2 DAYS Anaerobic Blood Culture - Preliminary NO GROWTH AFTER 2 DAYS 08/04/19 14:25 Aerobic Blood Culture - Preliminary Blood - Venous NO GROWTH AFTER 2 DAYS Anaerobic Blood Culture - Preliminary NO GROWTH AFTER 2 DAYS Med Orders - Current: Current Medications Acetaminophen (Tylenol) 650 mg PO Q4H PRN PRN Reason: Pain/Fever Amiodarone HCl (Cordarone) 200 mg PO DAILY [facility] Last Admin: 08/07/19 09:17 Dose: 200 mg Aspirin (Halfprin) 81 mg PO DAILY [facility] Last Admin: 08/07/19 09:17 Dose: 81 mg Cholecalciferol (Vitamin D3) 125 mcg PO DAILY [facility] Last Admin: 08/07/19 09:15 Dose: 125 mcg Clotrimazole (Lotrimin Af 1% Crm) 0 gm TOP BID [facility] Last Admin: 08/07/19 09:18 Dose: 1 applic Duloxetine HCl (Cymbalta) 60 mg PO DAILY [facility] Last Admin: 08/07/19 09:16 Dose: 60 mg Furosemide (Lasix) 20 mg PO DAILY [facility] Last Admin: 08/07/19 09:17 Dose: 20 mg Hydroxyzine HCl (Atarax) 25 mg PO Q6H PRN PRN Reason: Itching Last Admin: 08/05/19 19:59 Dose: 25 mg Daptomycin 450 mg/ Sodium (Chloride) 50 mls @ 100 mls/hr IV Q24H [facility] Stop: 08/08/19 10:01 Last Infusion: 08/07/19 09:57 Dose: Infused Clindamycin Phosphate 600 mg/ (Sodium Chloride) 104 mls @ 200 mls/hr IV Q8H [facility] Last Admin: 08/07/19 10:34 Dose: 200 mls/hr Insulin Human Lispro (Humalog) 0 unit SUBCUT QIDACANDBED [facility]; Protocol Last Admin: 08/07/19 09:56 Dose: Not Given Ondansetron HCl (Zofran) 4 mg IV Q4H PRN PRN Reason: Nausea/Vomiting Rivaroxaban (Xarelto) 20 mg PO DAILY [facility] Last Admin: 08/07/19 09:17 Dose: 20 mg Sodium Chloride (Saline Flush) 10 ml FLUSH ASDIRECTED PRN PRN Reason: Keep Vein Open Last Admin: 08/07/19 10:34 Dose: 10 ml Sodium Chloride (Saline Flush) 10 ml FLUSH ASDIRECTED PRN PRN Reason: Keep Vein Open Tiotropium [place] (Spiriva Handihaler) 18 mcg INH DAILY [facility] Last Admin: 08/07/19 09:14 Dose: 18 mcg Discontinued Medications Daptomycin (Cubicin) 450 mg 4 mg/kg (450 mg) IV Q24H [facility] Stop: 08/08/19 09:46 Diphenhydramine HCl (Benadryl) 50 mg PO Q12H [facility] Last Admin: 08/05/19 15:34 Dose: 50 mg Vancomycin HCl 1.5 gm/ Sodium (Chloride) 250 mls @ 167 mls/hr IV ONETIME ONE Stop: 08/04/19 16:47 Last Admin: 08/04/19 15:36 Dose: 167 mls/hr Sodium Chloride (Normal Saline) 1,000 mls @ 100 mls/hr IV ASDIRECTED [facility] Last Admin: 08/05/19 08:08 Dose: 100 mls/hr Vancomycin HCl (Vancomycin 1.5 Gm/300 Ml Bag) 300 mls @ 150 mls/hr IV Q12H [facility] Last Admin: 08/04/19 16:59 Dose: Not Given Vancomycin HCl (Vancomycin 1.5 Gm/300 Ml Bag) 300 mls @ 150 mls/hr IV Q12H [facility] Last Infusion: 08/05/19 05:31 Dose: Infused Vancomycin HCl 1.5 gm/ Premix 300 mls @ 150 mls/hr IV Q12H [facility] Last Infusion: 08/05/19 16:04 Dose: 100 mls/hr Methylprednisolone Sodium Succinate (Solu-Medrol) 125 mg IVPUSH ONETIME ONE Stop: 08/05/19 19:36 Last Admin: 08/05/19 19:54 Dose: 125 mg Non-Formulary Medication (Fish Oil/[place]-3 Fatty Acids [Fish Oil 1,000 Mg]) 1 cap PO DAILY [facility] Potassium Chloride (Klor-Con 10) 40 meq PO ONETIME ONE Stop: 08/04/19 16:14 Last Admin: 08/04/19 19:42 Dose: Not Given Potassium Chloride (Klor-Con 10) 40 meq PO ONETIME ONE Stop: 08/04/19 19:01 Potassium Chloride (Klor-Con 10) 40 meq PO ONETIME ONE Stop: 08/04/19 19:01 Last Admin: 08/04/19 19:42 Dose: 40 meq Potassium Chloride (Klor-Con 10) 20 meq PO ONETIME ONE Stop: 08/07/19 09:48 Last Admin: 08/07/19 10:33 Dose: 20 meq Simvastatin (Zocor) 10 mg PO BEDTIME [facility] Last Admin: 08/04/19 21:08 Dose: 10 mg Sodium Chloride (Saline Flush) 10 ml FLUSH ASDIRECTED PRN PRN Reason: Keep Vein Open Last Admin: 08/04/19 14:38 Dose: 10 ml Vancomycin HCl (Pharmacy To Dose - Vancomycin) 1 dose .XX ASDIRECTED [facility] - Exam Quality Assessment: DVT Prophylaxis. No: Supplemental Oxygen, Urine Catheter, Skin Breakdown General: Alert, Oriented, Cooperative, No Acute Distress HEENT: Pupils Equal, Pupils Reactive, EOMI, Mucous Membr. Moist/[place] Neck: No JVD, No Thyromegaly Lungs: Clear to Auscultation, Normal Respiratory Effort, Rhonchi. No: Wheezing Cardiovascular: Regular Rate, Regular Rhythm, Murmurs GI/Abdominal Exam: Normal Bowel Sounds, Non-Tender, No Organomegaly, No Distention (Female) Exam: Deferred Back Exam: Normal Inspection, Full Range of Motion Extremities: Normal Inspection, Non-Tender, No Pedal Edema, Other (Right LE thigh are still red and warm to touch) - Problem List Review Problem List Initiated/Reviewed/Updated: Yes - My Orders Last 24 Hours: My Active Orders 08/07/19 10:00 Clindamycin Phosphate [Cleocin] 600 mg Sodium Chloride 0.9% [Normal Saline] 100 ml IV Q8H - Plan Plan:: This is a 63 yo F with PMH of CVA with residual deficits, COPD, HTN, DM2, who presents with right inner thigh redness, pain, swelling and she also had fever and chill. She also has fungal infection in skin creases of the groin In the ER, found to have leukocytosis, She has had recurrent episodes of cellulitis in the past treated successfully with antibiotics. Impression and Plan: 1. Right thigh cellulitis: Pt had reaction to Vancomycin ( Beryl syndrome) -Leukocytosis was Improving but increased again today -Will continue IV Daptomycin and add Clindamycin 600 mg IV q8 hrs -f/u blood culture ( so far no growth) -Possibly she will be able to go home tomorrow ( 08/08/19) 2. Tinea inguinalis -Continue clotrimazole cream 3. Hypertension: BP is acceptable and currently she is not on any medication 4. Chronic afib: Continue Amiodarone, rate is will controlled and continue xarelto 5. Diabetes II ( Insulin Dependent) - Continue Accuchecks - Continue consistent carb diet -Continue Insulin 6. History of COPD - stable, not in exacerbation -Continue PRN duonebs - continue tiotropium daily 7. GI Prophylaxis: Continue protonix 8. DVT prophylaxis: she is on xarelto 9. Hypokalemia: Will give potassium chloride 20 meq X 1 dose -Recheck in AM Code Status: Full code
[2019-08-08] MEDS: Clindamycin Phosphate 600 MG in Sodium Chloride 0.9% 100 ML IV SCH (01:41)
[2019-08-08 06:47] LABS: ANION GAP 11.5; CHLORIDE,CL 103 mmol/L (101-111); SODIUM,NA 139 mmol/L (135-145)
[2019-08-08 07:46] VITALS: BP 152/86; PULSE 68
[2019-08-08] MEDS ORDERED: Potassium Chloride 10% 20 MEQ/15 ML Soln 15 ML UD Cup PO ONE (08:00)
[2019-08-08] MEDS: Insulin Lispro 100 Units/ML 3 ML Vial SUBCUT SCH (08:02)
[2019-08-08] MEDS: Cholecalciferol (Vitamin D3) 25 MCG Tab PO SCH (08:47)
[2019-08-08] MEDS: Rivaroxaban 10 MG Tab PO SCH (08:47)
[2019-08-08] MEDS: Furosemide 20 MG Tab PO SCH (08:47)
[2019-08-08] MEDS: DULoxetine 30 MG Cap PO SCH (08:47)
[2019-08-08] MEDS: Aspirin 81 MG Tab.EC PO SCH (08:48)
[2019-08-08] MEDS: Amiodarone 200 MG Tab PO SCH (08:48)
[2019-08-08] MEDS: Tiotropium Inhaler 18 MCG Inhalation Powder Cap Kit of 5 INH SCH (08:50)
[2019-08-08] MEDS: Clotrimazole 1% Crm 30 GM Tube TOP SCH (08:51)
--- NOTE | 2019-08-08 09:57 | PN ---
DATE: 08/08/2019 SUBJECTIVE: The patient is a 63-year-old lady with multiple medical problems including cerebrovascular accident, chronic obstructive pulmonary disease, hypertension, type 2 diabetes mellitus, who was admitted with cellulitis of the right leg and secondary to intertrigo on her inguinal area. She was started on vancomycin but had developed Red man syndrome, so this was changed to daptomycin and clindamycin. The patient's cellulitis of the right leg has improved and the patient this morning is ready to go home. The patient denies any fever, chills, chest pain, shortness of breath, nor any other complaints. CURRENT MEDICATIONS: Reviewed. OBJECTIVE: Vital Signs: Blood pressure is 152/86, pulse of 68, respirations 20, saturation is 96%, and temperature is 97.6. Heart: Regular rate and rhythm. Normal S1 and S2. No gallops. No rubs. Lungs: Equal bilaterally. No crackles. No wheezing. Abdomen: Obese, soft, nontender. Bowel sounds positive. Extremities: Cellulitis of the right leg has improved. PLAN: We will discharge the patient home today, and we will continue with clindamycin for the next 1 week. We will have her follow up with Dr. Castanon, who is her primary care versus physician in 1 week. [facility] /[id number]
--- NOTE | 2019-08-08 16:30 | DISCH ---
FINAL DIAGNOSES: 1. Right thigh cellulitis. 2. Leukocytosis. 3. Intertrigo. 4. Hypertension. 5. History of atrial fibrillation. 6. Type 2 diabetes mellitus. 7. Chronic obstructive pulmonary disease. BRIEF HISTORY OF PRESENT ILLNESS: The patient is a 63-year-old lady with past medical history of cerebrovascular accident; atrial fibrillation, on Xarelto; chronic obstructive pulmonary disease; hypertension; and type 2 diabetes mellitus; who was admitted with right inner thigh redness, pain and swelling associated with fever and chills, cellulitis, and leukocytosis. She was started on vancomycin, but the patient was complicated with Red man syndrome, and because of this, vancomycin was discontinued and she was placed on daptomycin and clindamycin. She did well with the regimen and hospital course was also complicated with mild hypokalemia and this was repleted. The patient's WBC on admission was 19,000 and has slowly improved, and on discharge, WBC is 8.7. Hospital course was uncomplicated, and the patient was subsequently discharged on oral clindamycin and she will follow up with Dr. Castanon in 1 week. Her home medications were resumed. CONDITION ON DISCHARGE: Improved. [facility] /[id number]
[2019-08-09] MEDS ORDERED: Potassium Chloride 10 MEQ Tab.ER PO ONE (09:00)
--- NOTE | 2019-08-15 16:26 | PN ---
DATE: 08/05/2019 SUBJECTIVE: Abbi Wu is a 63-year-old female, well known to me from previous care. She has had multiple previous admissions for cellulitis of legs, thighs, and lower abdominal wall. She was admitted yesterday with recurrent cellulitis of the upper extremities and thighs. PAST MEDICAL HISTORY: 1. Cerebrovascular disease with previous CVA with mild residual deficits. 2. Atrial fibrillation for which she is on Xarelto for anticoagulation. 3. COPD. 4. Hypertension. 5. Type 2 diabetes. 6. Morbid obesity. Review of her clinical data shows her vital signs to be stable. She has remained afebrile. Current weight is 245 pounds 6 ounces. She is drinking adequate fluids. She is voiding and moving her bowels. She is tolerating 100% of her meals. LABORATORY DATA: Repeat lab work today included a CBC, basic panel, and magnesium. CBC showed a white count of 13.7 compared to 19.4 at the time of admission. Hemoglobin and hematocrit were stable. Electrolytes were normal. GFR is greater than 60. Blood sugars have been within normal range. Magnesium was slightly low at 1.7. Potassium was normal at 3.6. D-dimer had been done at the time of admission and this was negative. PHYSICAL EXAMINATION: General: She is seated comfortably in bed at present. Her , Migel, is present in the room. Abbi was feeling better. She was as usual eager to be discharged, although we asked her to please stay for another 24 to 48 hours to have enough IV antibiotics to make a difference. She voiced no new concerns or complaints. No chest pain or shortness of breath. No abdominal pain. No nausea or vomiting. She denies any itching of the skin. HEENT: Unremarkable. Sclerae were nonicteric. Chest: Showed clear but diminished bilateral breath sounds. Heart: Showed regular rate and rhythm. Abdomen: Obese and benign. Extremities: Examination of the upper extremities showed extensive cellulitis particularly on the right inner thigh, although the edges had been marked and the leading edge appeared to be somewhat smaller than yesterday. Skin: Of note was the fact that on examination of the chest, skin of her back was noted to be bright red, blanchable. No raised lesions. We asked her specifically if her back was itching or any other issues or concerns and she stated no. She was not even aware that it had been red. DICTATION ENDS HERE. [facility] /[id number]
== END 2019-08-08 09:30 | disposition home or self-care (01) | DRG 638 ==
LOC: DL.ED 14:20 → EEVIPCON 15:22 → DL.MS 15:22
PROVIDERS: ADMIT Hospitalist; ATTEND Internal Medicine
DX: E11.628 Type 2 diabetes mellitus with other skin complications (principal); L03.115 Cellulitis of right lower limb; R11.10 Vomiting, unspecified; R94.2 Abnormal results of pulmonary function studies; I42.9 Cardiomyopathy, unspecified; Z68.41 Body mass index [BMI] 40.0-44.9, adult; E11.9 Type 2 diabetes mellitus without complications; I10 Essential (primary) hypertension; L30.4 Erythema intertrigo; R06.02 Shortness of breath; I48.91 Unspecified atrial fibrillation; J44.9 Chronic obstructive pulmonary disease, unspecified; E87.6 Hypokalemia; I69.351 Hemiplegia and hemiparesis following cerebral infarction affecting right dominant side; I87.8 Other specified disorders of veins; H54.7 Unspecified visual loss; I25.10 Atherosclerotic heart disease of native coronary artery without angina pectoris; Z22.322 Carrier or suspected carrier of Methicillin resistant Staphylococcus aureus; J45.909 Unspecified asthma, uncomplicated; K21.9 Gastro-esophageal reflux disease without esophagitis; M19.90 Unspecified osteoarthritis, unspecified site; E11.42 Type 2 diabetes mellitus with diabetic polyneuropathy; G62.9 Polyneuropathy, unspecified; F41.9 Anxiety disorder, unspecified; F32.9 Major depressive disorder, single episode, unspecified; E66.9 Obesity, unspecified; F17.210 Nicotine dependence, cigarettes, uncomplicated; G47.30 Sleep apnea, unspecified; E78.00 Pure hypercholesterolemia, unspecified; I50.9 Heart failure, unspecified; I11.0 Hypertensive heart disease with heart failure; I87.2 Venous insufficiency (chronic) (peripheral); B35.8 Other dermatophytoses; Z91.048 Other nonmedicinal substance allergy status; Z88.5 Allergy status to narcotic agent; Z87.01 Personal history of pneumonia (recurrent); Z86.73 Personal history of transient ischemic attack (TIA), and cerebral infarction without residual deficits; Z88.0 Allergy status to penicillin; Z88.1 Allergy status to other antibiotic agents; Z79.899 Other long term (current) drug therapy; Z79.82 Long term (current) use of aspirin
CPT/HCPCS: 36415; 71045; 80048; 80053; 82962; 83605; 83735; 84100; 85025; 85027; 85379; 87040; 96374; 99283-25; A9270-GY; J0878; J2930; J3370; J3490; J7030; J7050; Q0163

== ENCOUNTER 2019-12-25 11:03 | Emergency (ER) | payer MEDICAID ==
[2019-12-25] MEDS ORDERED: Oxymetazoline 0.05% Nasal Spray 15 ML Bottle ONE (11:08)
[2019-12-25] MEDS ORDERED: Lidocaine 1% with EPINEPHrine 1:100,000 20 ML MDV ONE (11:08)
[2019-12-25] MEDS ORDERED: Silver Nitrate Applicator Each ONE (11:24)
[2019-12-25] MEDS ORDERED: Ondansetron 4 MG Tab.DIS PO ONE (11:36)
[2019-12-25] MEDS ORDERED: Oxymetazoline 0.05% Nasal Spray 15 ML Bottle NASBOTH ONE (11:45)
[2019-12-25] MEDS ORDERED: Lidocaine 1% with EPINEPHrine 1:100,000 20 ML MDV INJECT ONE (11:45)
[2019-12-25 12:23] VITALS: BP 144/79; PULSE 78
--- NOTE | 2019-12-25 12:25 | EDM.PDOC ---
Scribed by Marilin Osorio 12/25/19 1142 for Osito Beard MD ED HPI GENERAL MEDICAL PROBLEM - General Chief Complaint: ENT Problem Stated Complaint: AMBULANCE Time Seen by Provider: 12/25/19 11:06 Source of Information: Reports: Patient, EMS, EMS Notes Reviewed, RN, RN Notes Reviewed History Limitations: Reports: No Limitations - History of Present Illness INITIAL COMMENTS - FREE TEXT/NARRATIVE: Patient presents to ER via [facility] with complaint of nose bleed, which is recurrent for 1 week. Denies injury, fever or congestion. Denies dizziness or lightheadedness. Onset: Gradual Duration: Recurring Location: Reports: Other (nose) Quality: Reports: Other (bleeding) Severity: Moderate Improves with: Reports: None Worsens with: Reports: None Associated Symptoms: Reports: No Other Symptoms - Related Data Allergies Allergy/AdvReac Type Severity Reaction Status Date / Time vancomycin Allergy Mild Redness Verified 12/25/19 11:43 adhesive tape Allergy Rash Verified 12/25/19 11:43 oxycodone Allergy Nausea and Verified 12/25/19 11:43 Vomiting Penicillins Allergy Rash Verified 12/25/19 11:43 piperacillin sodium Allergy Rash Verified 12/25/19 11:43 [From Zosyn] tazobactam sodium Allergy Rash Verified 12/25/19 11:43 [From Zosyn] Home Meds: Home Meds Albuterol [Ventolin HFA] 1 puff INH Q4H PRN 06/04/19 [History] Amiodarone [Cordarone] 200 mg PO DAILY 06/04/19 [History] Aspirin [Halfprin] 81 mg PO DAILY 06/04/19 [History] DULoxetine [Cymbalta] 60 mg PO DAILY 06/04/19 [History] Furosemide [Lasix] 20 mg PO DAILY 06/04/19 [History] Potassium Chloride 10 meq PO DAILY 06/04/19 [History] Rivaroxaban [Xarelto] 20 mg PO DAILY 06/04/19 [History] Simvastatin 10 mg PO BEDTIME 06/04/19 [History] Tiotropium [Spiriva Handihaler] 1 puff INH DAILY 06/04/19 [History] Cholecalciferol (Vitamin D3) [Vitamin D] 1 tab PO DAILY 08/04/19 [History] Fish Oil/[place]-3 Fatty Acids [Fish Oil 1,000 MG] 1 cap PO DAILY 08/04/19 [ History] Clindamycin HCl [Cleocin HCl] 300 mg PO TID 7 Days #21 capsule 08/08/19 [Rx] Clotrimazole [Lotrimin AF 1% Crm] 0 gm TOP BID 7 Days #1 tube 08/08/19 [Rx] Past Medical History HEENT History: Reports: Impaired Vision Cardiovascular History: Reports: Afib, CAD, Cardiomyopathy, Heart Failure, High Cholesterol, Hypertension, SOB on Exertion Respiratory History: Reports: Asthma, Bronchitis, Recurrent, COPD, Interstitial Lung Disease, Pneumonia, Recurrent, Sleep Apnea, SOB Gastrointestinal History: Reports: GERD Genitourinary History: Reports: Urinary Incontinence, Other (See Below) Other Genitourinary History: elevated BUN BRICKMASON History: Reports: Other BRICKMASON History: no Musculoskeletal History: Reports: Osteoarthritis Other Musculoskeletal History: chronic pain lower extremties, opoid dependence, ccomplete tear of rotator cuff, impaired activities of daily living Neurological History: Reports: CVA, Neuropathy, Diabetic Psychiatric History: Reports: Anxiety, Depression Endocrine/Metabolic History: Reports: Diabetes, Type II, IDDM, Obesity/BMI 30+ Hematologic History: Reports: Other (See Below) Other Hematologic History: leukocytosis Immunologic History: Reports: None Dermatologic History: Reports: Venous Stasis Dermatitis, Other (See Below) Other Dermatologic History: non-healing wounds to posterior right calf and abdominal folds. statis ulcers - Infectious Disease History Infectious Disease History: Reports: Chicken Pox, MRSA - Past Surgical History Other Cardiovascular Surgeries/Procedures: Patient denies CAD, cardiomyopathy, heart failure, high cholesterol, hypertension, and SOB- 08/04/19 Other Respiratory Surgeries/Procedures: Denies Asthma, bronchitis- 08/04/19 Other GI Surgeries/Procedures: denies gerd- 08/04/19 Other Endocrine Surgeries/Procedures: Denies DMII- 08-04-19 Other Neurological Surgeries/Procedures: Denies neuropathy Social & Family History - Family History Family Medical History: Noncontributory - Caffeine Use Caffeine Use: Reports: Tea - Living Situation & Occupation Living situation: Reports: , with Family Occupation: Disabled ED ROS GENERAL - Review of Systems Review Of Systems: Comprehensive ROS is negative, except as noted in HPI. ED EXAM, GENERAL - Physical Exam Exam: See Below Exam Limited By: No Limitations General Appearance: Alert, No Apparent Distress, Obese Ears: Normal External Exam, Hearing Grossly Normal Nose: Other (Active slow bleeding Rt nares, recent/dried blood at left anterior septum. Unable to visualize the level/location of bleeding on the right nares.) Throat/Mouth: Normal Voice, No Airway Compromise Head: Atraumatic, Normocephalic Neck: Normal Inspection Respiratory/Chest: No Respiratory Distress, Lungs Clear Cardiovascular: Regular Rate, Rhythm Neurological: Alert, Oriented, No Motor/Sensory Deficits Psychiatric: Normal Mood Skin Exam: Warm, Dry, Intact ED EPISTAXIS PROCEDURES - Epistaxis Procedure Indication: Epistaxis, Uncontrolled Recent anticoagulants/antiplatlets: Yes Uncontrolled HTN: No Recent septal/nasal surgery: No Site of bleeding: Right Nare, Left Nare Clearing of clots: Patient Blew Nose Topical Meds: Other (Afrin with Lidocaine 1% with epi.) Ice pack to area: No Chemical cautery: Silver Nitrate Topical (left nares only) Anterior Packing: Other (Rhino rocket 5.5cm Right nares) Complications: No Course - Vital Signs Last Recorded V/S: Last Vital Signs Temp 97.8 F 12/25/19 11:15 Pulse 78 12/25/19 11:15 Resp 16 12/25/19 11:15 BP 144/79 H 12/25/19 11:15 Pulse Ox 97 12/25/19 11:15 - Orders/Labs/Meds Labs: Laboratory Tests 12/25/19 Range/Units 11:39 WBC 10.7 H (5.0-10.0) 10^3/uL RBC 4.39 (4.2-5.4) 10^6/uL Hgb 12.9 (12.0-16.0) g/dL Hct 39.5 (37.0-47.0) % MCV 90.0 (80-100) fL MCH 29.4 (27.0-34.0) pg MCHC 32.7 L (33.0-35.0) g/dL Plt Count 231 (150-450) 10^3/uL Neut % (Auto) 54.9 (42.2-75.2) % Lymph % (Auto) 34.1 (20.5-50.1) % Johnson % (Auto) 8.2 H (2-8) % Eos % (Auto) 2.5 (1.0-3.0) % Baso % (Auto) 0.3 (0.0-1.0) % Meds: Medications Discontinued Medications Generic Name Dose Route Start Last Admin Trade Name aSleem PRN Reason Stop Dose Admin Lidocaine/Epinephrine Confirm 12/25/19 11:08 Xylocaine 1% With Epinephrine 1:100,000 Administered 12/25/19 11:09 Dose 20 ml .ROUTE .STK-MED ONE Ondansetron HCl 4 mg 12/25/19 11:36 Zofran Odt PO 12/25/19 11:37 ONETIME ONE Oxymetazoline HCl Confirm 12/25/19 11:08 Afrin Original 0.05% Nasal [place] Administered 12/25/19 11:09 Dose 15 ml .ROUTE .STK-MED ONE Silver Nitrate Confirm 12/25/19 11:24 Silver Nitrate Administered 12/25/19 11:25 Dose 1 each .ROUTE .STK-MED ONE Departure - Departure Time of Disposition: 12:24 Disposition: Home, Self-Care 01 Condition: Good Clinical Impression: Epistaxis - Discharge Information *PRESCRIPTION DRUG MONITORING PROGRAM REVIEWED*: Not Applicable *COPY OF PRESCRIPTION DRUG MONITORING REPORT IN PATIENT MULU: Not Applicable Referrals: Sterling Castanon MD [Primary Care Provider] - Forms: ED Department Discharge Additional Instructions: Do not blow, wipe, rub, or wipe your nose. Use the nasal spray bottle sent home from the ER with you if the left nostril bleeds again. Follow up with your primary clinic in 2 days for recheck, packing removal, and consideration of referral to an Ear/Nose/Throat specialist. Ask Dr. Castanon about a moisturizer device to go with your CPAP machine. Sepsis Event Note - Focused Exam Vital Signs: Vital Signs Temp Pulse Resp BP Pulse Ox 12/25/19 11:15 97.8 F 78 16 144/79 H 97 Date Exam was Performed: 12/25/19 Time Exam was Performed: 12:24 I have read and agree with the documentation that has been completed regarding this visit. By signing this record, I attest that the documentation was completed in my physical presence and is an accurate record of the encounter.
== END 2019-12-25 12:46 | disposition home or self-care (01) ==
LOC: DL.ED 11:03
DX: R04.0 Epistaxis (principal); I11.0 Hypertensive heart disease with heart failure; I50.9 Heart failure, unspecified; E78.00 Pure hypercholesterolemia, unspecified; I25.10 Atherosclerotic heart disease of native coronary artery without angina pectoris; I48.91 Unspecified atrial fibrillation; J44.9 Chronic obstructive pulmonary disease, unspecified; K21.9 Gastro-esophageal reflux disease without esophagitis; M19.90 Unspecified osteoarthritis, unspecified site; E11.40 Type 2 diabetes mellitus with diabetic neuropathy, unspecified; F41.9 Anxiety disorder, unspecified; F32.9 Major depressive disorder, single episode, unspecified; Z86.73 Personal history of transient ischemic attack (TIA), and cerebral infarction without residual deficits; E66.9 Obesity, unspecified; Z88.1 Allergy status to other antibiotic agents; Z88.0 Allergy status to penicillin; Z88.5 Allergy status to narcotic agent; Z91.048 Other nonmedicinal substance allergy status; Z88.8 Allergy status to other drugs, medicaments and biological substances; Z79.899 Other long term (current) drug therapy; Z79.01 Long term (current) use of anticoagulants
CPT/HCPCS: 30901; 30903; 36415; 85025; 99282; A9270

== ENCOUNTER 2020-01-23 23:07 | Emergency (ER) | payer MEDICAID ==
[2020-01-23 23:12] VITALS: BP 149/77; PULSE 80
[2020-01-23] MEDS ORDERED: Oxymetazoline 0.05% Nasal Spray 15 ML Bottle NAS ONE (23:13)
--- NOTE | 2020-01-23 23:34 | EDM.PDOC ---
ED HPI GENERAL MEDICAL PROBLEM - General Chief Complaint: ENT Problem Stated Complaint: AMBULANCE Time Seen by Provider: 01/23/20 23:15 Source of Information: Reports: Patient History Limitations: Reports: No Limitations - History of Present Illness INITIAL COMMENTS - FREE TEXT/NARRATIVE: This 64 yo female patient was brought to the ED by [facility] due to a nosebleed. The patient reports she has had several nose bleeds today with the last nosebleed starting about 20 minutes prior to calling EMS. EMS attempted to control the bleeding, but was unable to stop the bleeding. The patient had a similar nosebleed 1 month ago that required nasal packing. Onset: Today Duration: Intermittent Quality: Reports: Other Severity: Moderate Improves with: Reports: None Worsens with: Reports: None Context: Reports: Other - Related Data Allergies Allergy/AdvReac Type Severity Reaction Status Date / Time vancomycin Allergy Mild Redness Verified 01/23/20 23:13 adhesive tape Allergy Rash Verified 01/23/20 23:13 oxycodone Allergy Nausea and Verified 01/23/20 23:13 Vomiting Penicillins Allergy Rash Verified 01/23/20 23:13 piperacillin sodium Allergy Rash Verified 01/23/20 23:13 [From Zosyn] tazobactam sodium Allergy Rash Verified 01/23/20 23:13 [From Zosyn] Home Meds: Home Meds Albuterol [Ventolin HFA] 1 puff INH Q4H PRN 06/04/19 [History] Amiodarone [Cordarone] 200 mg PO DAILY 06/04/19 [History] Aspirin [Halfprin] 81 mg PO DAILY 06/04/19 [History] DULoxetine [Cymbalta] 60 mg PO DAILY 06/04/19 [History] Furosemide [Lasix] 20 mg PO DAILY 06/04/19 [History] Potassium Chloride 10 meq PO DAILY 06/04/19 [History] Rivaroxaban [Xarelto] 20 mg PO DAILY 06/04/19 [History] Simvastatin 10 mg PO BEDTIME 06/04/19 [History] Tiotropium [Spiriva Handihaler] 1 puff INH DAILY 06/04/19 [History] Cholecalciferol (Vitamin D3) [Vitamin D] 1 tab PO DAILY 08/04/19 [History] Fish Oil/[place]-3 Fatty Acids [Fish Oil 1,000 MG] 1 cap PO DAILY 08/04/19 [ History] Clotrimazole [Lotrimin AF 1% Crm] 0 gm TOP BID 7 Days #1 tube 08/08/19 [Rx] clindamycin HCL [Cleocin HCl] 300 mg PO TID 7 Days #21 capsule 08/08/19 [Rx] Past Medical History HEENT History: Reports: Impaired Vision Cardiovascular History: Reports: Afib, CAD, Cardiomyopathy, Heart Failure, High Cholesterol, Hypertension, SOB on Exertion Respiratory History: Reports: Asthma, Bronchitis, Recurrent, COPD, Interstitial Lung Disease, Pneumonia, Recurrent, Sleep Apnea, SOB Gastrointestinal History: Reports: GERD Genitourinary History: Reports: Urinary Incontinence, Other (See Below) Other Genitourinary History: elevated BUN BRICK CLEANER History: Reports: Other BRICK CLEANER History: no Musculoskeletal History: Reports: Osteoarthritis Other Musculoskeletal History: chronic pain lower extremties, opoid dependence, ccomplete tear of rotator cuff, impaired activities of daily living Neurological History: Reports: CVA, Neuropathy, Diabetic Psychiatric History: Reports: Anxiety, Depression Endocrine/Metabolic History: Reports: Diabetes, Type II, IDDM, Obesity/BMI 30+ Hematologic History: Reports: Other (See Below) Other Hematologic History: leukocytosis Immunologic History: Reports: None Dermatologic History: Reports: Venous Stasis Dermatitis, Other (See Below) Other Dermatologic History: non-healing wounds to posterior right calf and abdominal folds. statis ulcers - Infectious Disease History Infectious Disease History: Reports: Chicken Pox, MRSA - Past Surgical History Other Cardiovascular Surgeries/Procedures: Patient denies CAD, cardiomyopathy, heart failure, high cholesterol, hypertension, and SOB- 08/04/19 Other Respiratory Surgeries/Procedures: Denies Asthma, bronchitis- 08/04/19 Other Neurological Surgeries/Procedures: Denies neuropathy Social & Family History - Family History Family Medical History: Noncontributory - Tobacco Use Smoking Status *Q: Current Every Day Smoker Years of Tobacco use: 30 Packs/Tins Daily: 0.7 - Caffeine Use Caffeine Use: Reports: None - Recreational Drug Use Recreational Drug Use: No - Living Situation & Occupation Living situation: Reports: , with Family Occupation: Disabled ED ROS ENT - Review of Systems Review Of Systems: Comprehensive ROS is negative, except as noted in HPI. ED EXAM, ENT - Physical Exam Exam: See Below Exam Limited By: No Limitations General Appearance: Alert, WD/WN, Mild Distress Eye Exam: Bilateral Eye: EOMI, Normal Inspection, PERRL Ears: Normal External Exam, Normal Canal, Hearing Grossly Normal, Normal TMs Nose: Active Bleeding (right nare) Mouth/Throat: Normal Inspection, Normal Gums, Normal Lips, Normal Oropharynx, Normal Teeth Head: Atraumatic, Normocephalic Neck: Normal Inspection, Supple, Non-Tender, Full Range of Motion Respiratory/Chest: No Respiratory Distress, Lungs Clear, Normal Breath Sounds, No Accessory Muscle Use, Chest Non-Tender Cardiovascular: Normal Peripheral Pulses, Regular Rate, Rhythm, No Edema, No Gallop, No JVD, No Murmur, No Rub GI/Abdominal: Normal Bowel Sounds, Soft, Non-Tender, No Organomegaly, No Distention, No Abnormal Bruit, No Mass (Female) Exam: Deferred Rectal (Female) Exam: Deferred Back: Normal Inspection, Full Range of Motion Extremities: Normal Inspection, Normal Range of Motion, Non-Tender, No Pedal Edema, Normal Capillary Refill Neurological: Alert, Oriented, CN II-XII Intact, Normal Cognition, Normal Gait, Normal Reflexes, No Motor/Sensory Deficits Psychiatric: Normal Affect, Normal Mood Skin: Warm, Dry, Intact, Normal Color, No Rash Lymphatic: No Adenopathy Course - Vital Signs Last Recorded V/S: Last Vital Signs Temp 36.1 C 01/23/20 23:07 Pulse 80 01/23/20 23:07 Resp 18 01/23/20 23:07 BP 149/77 H 01/23/20 23:07 Pulse Ox 94 L 01/23/20 23:07 - Orders/Labs/Meds Meds: Medications Discontinued Medications Generic Name Dose Route Start Last Admin Trade Name Bongq PRN Reason Stop Dose Admin Oxymetazoline HCl 1 ml 01/23/20 23:13 01/23/20 23:21 Afrin Original 0.05% Nasal [place] PB 01/23/20 23:14 1 ml ONETIME ONE Administration Departure - Departure Time of Disposition: 00:16 Disposition: Home, Self-Care 01 Condition: Fair Clinical Impression: Epistaxis - Discharge Information *PRESCRIPTION DRUG MONITORING PROGRAM REVIEWED*: Not Applicable *COPY OF PRESCRIPTION DRUG MONITORING REPORT IN PATIENT MULU: Not Applicable Instructions: Nosebleed, [id number] Forms: ED Department Discharge Care Plan Goals: The patient was advised of the examination and lab results during the visit. The patient's nares were sprayed with Afrin while in the ED to control the bleeding. The patient was encouraged to avoid blowing her nose and try to avoid coughing over the next 48 hours. The patient should visit her primary care facility for continued evaluation and management. If the patient has any additional symptoms or concerns, the patient should either return to the emergency department or visit his primary care facility Sepsis Event Note - Evaluation Sepsis Screening Result: No Definite Risk - Focused Exam Vital Signs: Vital Signs Temp Pulse Resp BP Pulse Ox 01/23/20 23:07 36.1 C 80 18 149/77 H 94 L Date Exam was Performed: 01/24/20 Time Exam was Performed: 00:45
== END 2020-01-24 00:50 | disposition home or self-care (01) ==
LOC: DL.ED 23:07
DX: R04.0 Epistaxis (principal); I11.0 Hypertensive heart disease with heart failure; I50.9 Heart failure, unspecified; E11.40 Type 2 diabetes mellitus with diabetic neuropathy, unspecified; J44.9 Chronic obstructive pulmonary disease, unspecified; E66.9 Obesity, unspecified; Z86.73 Personal history of transient ischemic attack (TIA), and cerebral infarction without residual deficits; F41.9 Anxiety disorder, unspecified; F32.9 Major depressive disorder, single episode, unspecified; F17.210 Nicotine dependence, cigarettes, uncomplicated; Z79.899 Other long term (current) drug therapy; Z88.1 Allergy status to other antibiotic agents; Z88.0 Allergy status to penicillin; Z88.6 Allergy status to analgesic agent; Z91.09 Other allergy status, other than to drugs and biological substances
CPT/HCPCS: 99284; A9270

== ENCOUNTER 2020-07-06 10:52 | Emergency (ER) | payer MEDICAID ==
[2020-07-06] MEDS ORDERED: Sodium Chloride 0.9% 10 ML Syringe FLUSH PRN (10:54)
--- NOTE | 2020-07-06 10:54 | EDM.PDOC ---
ED HPI GENERAL MEDICAL PROBLEM - General Stated Complaint: IN BY AMBULANCE Time Seen by Provider: 07/06/20 10:54 Source of Information: Reports: Patient, EMS, EMS Notes Reviewed, RN, RN Notes Reviewed History Limitations: Reports: No Limitations - History of Present Illness INITIAL COMMENTS - FREE TEXT/NARRATIVE: Patient to ER per [facility] with complaint of cellulitis of the right lower leg. Patient states this is been going on for a few weeks, is a chronic problem for her. Patient states she has had fever and chills and decreased appetite for the last 3 days. Patient reports 10/10 pain to the right lower extremity. Patient states her is her QS P and changes her dressings. States he has been drinking quite a bit lately and feels he is too drunk to take care of her. Patient states dressing was last changed last evening. Patient admits to history of COPD, denies CHF. Onset: Gradual Right Leg Pain Score (Numeric/FACES): 8 - Related Data Allergies Allergy/AdvReac Type Severity Reaction Status Date / Time vancomycin Allergy Mild Redness Verified 07/06/20 11:07 adhesive tape Allergy Rash Verified 07/06/20 11:07 oxycodone Allergy Nausea and Verified 07/06/20 11:07 Vomiting Penicillins Allergy Rash Verified 07/06/20 11:07 piperacillin sodium Allergy Rash Verified 07/06/20 11:07 [From Zosyn] tazobactam sodium Allergy Rash Verified 07/06/20 11:07 [From Zosyn] Home Meds: Home Meds Albuterol [Ventolin HFA] 1 puff INH Q4H PRN 06/04/19 [History] Amiodarone [Cordarone] 200 mg PO DAILY 06/04/19 [History] Aspirin [Halfprin] 81 mg PO DAILY 06/04/19 [History] DULoxetine [Cymbalta] 60 mg PO DAILY 06/04/19 [History] Furosemide [Lasix] 20 mg PO DAILY 06/04/19 [History] Potassium Chloride 10 meq PO DAILY 06/04/19 [History] Rivaroxaban [Xarelto] 20 mg PO DAILY 06/04/19 [History] Simvastatin 10 mg PO BEDTIME 06/04/19 [History] Tiotropium [Spiriva Handihaler] 1 puff INH DAILY 06/04/19 [History] Cholecalciferol (Vitamin D3) [Vitamin D] 1 tab PO DAILY 08/04/19 [History] Fish Oil/[place]-3 Fatty Acids [Fish Oil 1,000 MG] 1 cap PO DAILY 08/04/19 [History] Clotrimazole [Lotrimin AF 1% Crm] 0 gm TOP BID 7 Days #1 tube 08/08/19 [Rx] clindamycin HCL [Cleocin HCl] 300 mg PO TID 7 Days #21 capsule 08/08/19 [Rx] Past Medical History HEENT History: Reports: Impaired Vision Cardiovascular History: Reports: Afib, CAD, Cardiomyopathy, Heart Failure, High Cholesterol, Hypertension, SOB on Exertion Respiratory History: Reports: Asthma, Bronchitis, Recurrent, COPD, Interstitial Lung Disease, Pneumonia, Recurrent, Sleep Apnea, SOB Gastrointestinal History: Reports: GERD Genitourinary History: Reports: Urinary Incontinence, Other (See Below) Other Genitourinary History: elevated BUN 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: Other GENERAL WAREHOUSE ASSOCIATE History: no Musculoskeletal History: Reports: Osteoarthritis Other Musculoskeletal History: chronic pain lower extremties, opoid dependence, ccomplete tear of rotator cuff, impaired activities of daily living Neurological History: Reports: CVA, Neuropathy, Diabetic Psychiatric History: Reports: Anxiety, Depression Endocrine/Metabolic History: Reports: Diabetes, Type II, IDDM, Obesity/BMI 30+ Hematologic History: Reports: Other (See Below) Other Hematologic History: leukocytosis Immunologic History: Reports: None Dermatologic History: Reports: Venous Stasis Dermatitis, Other (See Below) Other Dermatologic History: non-healing wounds to posterior right calf and abdominal folds. statis ulcers - Infectious Disease History Infectious Disease History: Reports: Chicken Pox, MRSA - Past Surgical History Other Cardiovascular Surgeries/Procedures: Patient denies CAD, cardiomyopathy, heart failure, high cholesterol, hypertension, and SOB- 08/04/19 Other Respiratory Surgeries/Procedures: Denies Asthma, bronchitis- 08/04/19 Other Neurological Surgeries/Procedures: Denies neuropathy Social & Family History - Family History Family Medical History: Noncontributory - Caffeine Use Caffeine Use: Reports: Tea - Living Situation & Occupation Living situation: Reports: , with Family Occupation: Disabled ED ROS GENERAL - Review of Systems Review Of Systems: Comprehensive ROS is negative, except as noted in HPI. ED EXAM, SKIN/RASH Exam: See Below Exam Limited By: No Limitations General Appearance: Alert, WD/WN, Moderate Distress Eye Exam: Bilateral Eye: EOMI, Normal Inspection Ears: Normal External Exam, Hearing Grossly Normal Nose: Normal Inspection Throat/Mouth: Normal Inspection, Normal Voice, No Airway Compromise Head: Atraumatic, Normocephalic Neck: Normal Inspection, Supple, Non-Tender, Full Range of Motion Respiratory/Chest: Decreased Breath Sounds, Crackles (bases bilaterally) Cardiovascular: Normal Peripheral Pulses, Regular Rate, Rhythm, No Gallop, No JVD, No Murmur, No Rub Peripheral Pulses: 2+: Radial (L), Radial (R) GI/Abdominal: Normal Bowel Sounds, Soft, Non-Tender (Female) Exam: Deferred Rectal (Female) Exam: Deferred Back Exam: Normal Inspection, Full Range of Motion Extremities: Leg Pain (Right leg), Limited Range of Motion, Increased Warmth (Right leg), Redness (Right leg) Neurological: Alert, Oriented, CN II-XII Intact, Normal Cognition Psychiatric: Anxious, Tearful Skin: Warm, Erythema (Right lower leg, patchy on thigh, solid from knee down), Excoriations (Right ankle/foot), Increased Warmth (Right lower leg) Location, Skin: Lower Extremity, Right Associated features: Warmth, Tenderness, Swelling, Induration, Scaling, Lympha ngitis, Inflammation, Crusting, Weeping Lymphatic: No Adenopathy Course - Vital Signs Last Recorded V/S: Last Vital Signs Temp 96.5 F L 07/06/20 15:00 Pulse 80 07/06/20 15:00 Resp 20 07/06/20 15:00 BP 125/70 07/06/20 15:00 Pulse Ox 99 07/06/20 15:00 - Orders/Labs/Meds Orders: Active Orders 24 hr Category Date Time Status Peripheral IV Care [RC] . DIRECTED Care 07/06/20 10:54 Active CULTURE BLOOD [BC] Stat Lab 07/06/20 11:11 Received CULTURE BLOOD [BC] Stat Lab 07/06/20 11:53 Received Sodium Chloride 0.9% [Saline Flush] Med 07/06/20 10:54 Active 10 ml FLUSH ASDIRECTED PRN Blood Culture x2 Reflex Set [OM.PC] Stat Oth 07/06/20 10:54 Ordered Peripheral IV Insertion Adult [OM.PC] Stat Oth 07/06/20 10:54 Ordered Medication Orders Sodium Chloride (Saline Flush) 10 ml FLUSH ASDIRECTED PRN PRN Reason: Keep Vein Open Last Admin: 07/06/20 11:31 Dose: 10 ml Documented by: SREEKANTH Labs: Laboratory Tests 07/06/20 07/06/20 07/06/20 Range/Units 11:11 11:11 11:11 WBC 22.7 H (5.0-10.0) 10^3/uL RBC 4.60 (4.2-5.4) 10^6/uL Hgb 12.7 (12.0-16.0) g/dL Hct 38.3 (37.0-47.0) % MCV 83.3 D (80-100) fL MCH 27.6 (27.0-34.0) pg MCHC 33.2 (33.0-35.0) g/dL Plt Count 241 (150-450) 10^3/uL Neut % (Auto) 79.3 H (42.2-75.2) % Lymph % (Auto) 10.1 L (20.5-50.1) % [place] % (Auto) 10.4 H (2-8) % Eos % (Auto) 0.1 L (1.0-3.0) % Baso % (Auto) 0.1 (0.0-1.0) % Add Manual Diff Yes Neutrophils % (Manual) 74 (42-75) % Band Neutrophils % 5 % Lymphocytes % (Manual) 13 L (20-50) % Monocytes % (Manual) 8 (2-8) % Sodium 134 L (136-145) mmol/L Potassium 3.7 (3.5-5.1) mmol/L Chloride 97 L (98-107) mmol/L Carbon Dioxide 30 (21-32) mmol/L Anion Gap 10.7 (7-13) mEq/L BUN 26 H (7-18) mg/dL Creatinine 1.34 H (0.55-1.02) mg/dL Est Cr Clr Drug Dosing 31.27 mL/min Estimated GFR (MDRD) 40 BUN/Creatinine Ratio 19.4 (No establ ref range) Glucose 106 H (74-99) mg/dL Lactic Acid 1.5 (0.4-2.0) mmol/L Calcium 8.8 (8.5-10.1) mg/dL Total Bilirubin 0.5 (0.2-1.0) mg/dL AST 66 H (15-37) U/L ALT 48 (14-59) U/L Alkaline Phosphatase 131 H (46-116) U/L B-Natriuretic Peptide (0-100) pg/ml Total Protein 7.7 (6.4-8.2) g/dL Albumin 2.4 L (3.4-5.0) g/dL Globulin 5.3 Albumin/Globulin Ratio 0.45 08/21/20 Range/Units 11:11 WBC (5.0-10.0) 10^3/uL RBC (4.2-5.4) 10^6/uL Hgb (12.0-16.0) g/dL Hct (37.0-47.0) % MCV (80-100) fL MCH (27.0-34.0) pg MCHC (33.0-35.0) g/dL Plt Count (150-450) 10^3/uL Neut % (Auto) (42.2-75.2) % Lymph % (Auto) (20.5-50.1) % [place] % (Auto) (2-8) % Eos % (Auto) (1.0-3.0) % Baso % (Auto) (0.0-1.0) % Add Manual Diff Neutrophils % (Manual) (42-75) % Band Neutrophils % % Lymphocytes % (Manual) (20-50) % Monocytes % (Manual) (2-8) % Sodium (136-145) mmol/L Potassium (3.5-5.1) mmol/L Chloride (98-107) mmol/L Carbon Dioxide (21-32) mmol/L Anion Gap (7-13) mEq/L BUN (7-18) mg/dL Creatinine (0.55-1.02) mg/dL Est Cr Clr Drug Dosing mL/min Estimated GFR (MDRD) BUN/Creatinine Ratio (No establ ref range) Glucose (74-99) mg/dL Lactic Acid (0.4-2.0) mmol/L Calcium (8.5-10.1) mg/dL Total Bilirubin (0.2-1.0) mg/dL AST (15-37) U/L ALT (14-59) U/L Alkaline Phosphatase (46-116) U/L B-Natriuretic Peptide 412 H (0-100) pg/ml Total Protein (6.4-8.2) g/dL Albumin (3.4-5.0) g/dL Globulin Albumin/Globulin Ratio Meds: Medications Generic Name Dose Route Start Last Admin Trade Name Bongq PRN Reason Stop Dose Admin Sodium Chloride 10 ml 07/06/20 10:54 07/06/20 11:31 Saline Flush FLUSH 10 ml ASDIRECTED PRN Administration Keep Vein Open Discontinued Medications Generic Name Dose Route Start Last Admin Trade Name Freq PRN Reason Stop Dose Admin Fentanyl 50 mcg 07/06/20 11:23 07/06/20 11:31 Sublimaze IVPUSH 07/06/20 11:24 50 mcg ONETIME ONE Administration Hydromorphone HCl 1 mg 07/06/20 12:00 07/06/20 12:11 Dilaudid IVPUSH 07/06/20 12:01 1 mg ONETIME ONE Administration Ceftriaxone Sodium 2 gm/ 100 mls @ 200 mls/hr 07/06/20 12:34 07/06/20 12:53 Sodium Chloride IV 07/06/20 13:03 200 mls/hr ONETIME ONE Administration Clindamycin Phosphate 600 mg/ 104 mls @ 200 mls/hr 07/06/20 12:34 07/06/20 13:57 Sodium Chloride IV 07/06/20 13:05 200 mls/hr ONETIME ONE Administration Ondansetron HCl 4 mg 07/06/20 12:00 07/06/20 12:11 Zofran IV 07/06/20 12:01 4 mg ONETIME ONE Administration - Re-Assessments/Exams Free Text/Narrative Re-Assessment/Exam: 07/06/20 12:35 Patient case discussed with Dr. Cabrales who states the patient needs to be transferred to a higher level of care. Discussed patient case with Dr. Knox who agreed to accept the patient for transfer to [facility] when a [facility] Bed is available. Patient will be held extended ER until a bed is available. Departure - Departure Time of Disposition: 15:45 Disposition: DC/Tfer to Acute Hospital 02 Condition: Fair, Serious Clinical Impression: CHF, Congestive heart failure, History of COPD Cellulitis Qualifiers: Site of cellulitis: extremity Site of cellulitis of extremity: lower extremity Laterality: right Qualified Code(s): L03.115 - Cellulitis of right lower limb - Discharge Information *PRESCRIPTION DRUG MONITORING PROGRAM REVIEWED*: No *COPY OF PRESCRIPTION DRUG MONITORING REPORT IN PATIENT MULU: No Forms: ED Department Discharge, Interfacility Transfer [place] Sepsis Event Note (ED) - Focused Exam Vital Signs: Vital Signs Temp Pulse Resp BP Pulse Ox 07/06/20 15:00 96.5 F L 80 20 125/70 99 07/06/20 14:32 97.2 F 78 20 105/56 L 98 07/06/20 13:23 79 120/66 98 07/06/20 10:54 96.8 F L 80 18 99/58 L 93 L - My Orders Last 24 Hours: My Active Orders 07/06/20 10:54 Peripheral IV Care [RC] . DIRECTED Sodium Chloride 0.9% [Saline Flush] 10 ml FLUSH ASDIRECTED PRN Blood Culture x2 Reflex Set [OM.PC] Stat Peripheral IV Insertion Adult [OM.PC] Stat 07/06/20 11:11 CULTURE BLOOD [BC] Stat 07/06/20 11:53 CULTURE BLOOD [BC] Stat - Assessment/Plan Last 24 Hours: My Active Orders 07/06/20 10:54 Peripheral IV Care [RC] . DIRECTED Sodium Chloride 0.9% [Saline Flush] 10 ml FLUSH ASDIRECTED PRN Blood Culture x2 Reflex Set [OM.PC] Stat Peripheral IV Insertion Adult [OM.PC] Stat 07/06/20 11:11 CULTURE BLOOD [BC] Stat 07/06/20 11:53 CULTURE BLOOD [BC] Stat
[2020-07-06] MEDS ORDERED: fentaNYL 100 MCG/2 ML SDV IVPUSH ONE (11:23)
[2020-07-06 11:50] LABS: ANION GAP 10.7 mEq/L (7-13)
[2020-07-06] MEDS ORDERED: Ondansetron 4 MG/2 ML SDV IV ONE (12:00)
[2020-07-06] MEDS ORDERED: HYDROmorphone 1 MG/ML Syringe IVPUSH ONE (12:00)
[2020-07-06] MEDS ORDERED: cefTRIAXone 2 GM in Sodium Chloride 0.9% 100 ML IV ONE (12:34)
[2020-07-06] MEDS ORDERED: Clindamycin Phosphate 600 MG in Sodium Chloride 0.9% 100 ML IV ONE (12:34)
[2020-07-06 15:01] VITALS: BP 125/70; PULSE 80
== END 2020-07-06 15:55 ==
LOC: DL.ED 10:52
DX: I11.0 Hypertensive heart disease with heart failure (principal); I50.9 Heart failure, unspecified; L03.115 Cellulitis of right lower limb; J44.9 Chronic obstructive pulmonary disease, unspecified; I48.91 Unspecified atrial fibrillation; I25.10 Atherosclerotic heart disease of native coronary artery without angina pectoris; E78.00 Pure hypercholesterolemia, unspecified; E11.40 Type 2 diabetes mellitus with diabetic neuropathy, unspecified; E66.9 Obesity, unspecified; F41.9 Anxiety disorder, unspecified; F32.9 Major depressive disorder, single episode, unspecified; Z88.1 Allergy status to other antibiotic agents; Z88.5 Allergy status to narcotic agent; Z88.0 Allergy status to penicillin; Z88.8 Allergy status to other drugs, medicaments and biological substances; Z91.09 Other allergy status, other than to drugs and biological substances; Z79.82 Long term (current) use of aspirin; Z79.899 Other long term (current) drug therapy; Z68.43 Body mass index [BMI] 50.0-59.9, adult
CPT/HCPCS: 36415; 80053; 83605; 83880; 85025; 87040; 96365; 96366; 96375; 99285; J0696; J1170; J2405; J3010; J3490; J7050

== ENCOUNTER 2020-12-12 15:15 | Emergency (ER) | payer MEDICAID ==
[2020-12-12 15:29] VITALS: BP 147/69; PULSE 71
[2020-12-12] MEDS ORDERED: Sodium Chloride 0.9% 1,000 ML IV SCH (15:45)
--- NOTE | 2020-12-12 15:51 | EDM.PDOC ---
ED HPI GENERAL MEDICAL PROBLEM - General Chief Complaint: General Stated Complaint: [facility] Time Seen by Provider: 12/12/20 15:35 Source of Information: Reports: Patient History Limitations: Reports: No Limitations - History of Present Illness INITIAL COMMENTS - FREE TEXT/NARRATIVE: This 65 yo female patient reports to the ED due to a 2 day history of cramps in her upper and lower extremities. The patient continues to report the cramping. The patient denies any nausea, vomiting or diarrhea. The patient reports she has been eating and drinking normally. Onset: Today Duration: Constant Location: Reports: Upper Extremity, Left, Upper Extremity, Right, Lower Extremity, Left, Lower Extremity, Right Quality: Reports: Ache Severity: Moderate Improves with: Reports: None Worsens with: Reports: None Context: Reports: Other Associated Symptoms: Reports: No Other Symptoms Bilateral Lower Leg Pain Score (Numeric/FACES): 10 - Related Data Allergies Allergy/AdvReac Type Severity Reaction Status Date / Time vancomycin Allergy Mild Redness Verified 12/12/20 15:29 adhesive tape Allergy Rash Verified 12/12/20 15:29 oxycodone Allergy Nausea and Verified 12/12/20 15:29 Vomiting Penicillins Allergy Rash Verified 12/12/20 15:29 piperacillin sodium Allergy Rash Verified 12/12/20 15:29 [From Zosyn] tazobactam sodium Allergy Rash Verified 12/12/20 15:29 [From Zosyn] Home Meds: Home Meds Albuterol [Ventolin HFA] 1 puff INH Q4H PRN 06/04/19 [History] Amiodarone [Cordarone] 200 mg PO DAILY 06/04/19 [History] Aspirin [Halfprin] 81 mg PO DAILY 06/04/19 [History] DULoxetine [Cymbalta] 60 mg PO DAILY 06/04/19 [History] Furosemide [Lasix] 20 mg PO DAILY 06/04/19 [History] Potassium Chloride 10 meq PO DAILY 06/04/19 [History] Rivaroxaban [Xarelto] 20 mg PO DAILY 06/04/19 [History] Simvastatin 10 mg PO BEDTIME 06/04/19 [History] Tiotropium [Spiriva Handihaler] 1 puff INH DAILY 06/04/19 [History] Cholecalciferol (Vitamin D3) [Vitamin D] 1 tab PO DAILY 08/04/19 [History] Fish Oil/[place]-3 Fatty Acids [Fish Oil 1,000 MG] 1 cap PO DAILY 08/04/19 [History] Past Medical History HEENT History: Reports: Impaired Vision Cardiovascular History: Reports: Afib, CAD, Cardiomyopathy, Heart Failure, High Cholesterol, Hypertension, SOB on Exertion Respiratory History: Reports: Asthma, Bronchitis, Recurrent, COPD, Interstitial Lung Disease, Pneumonia, Recurrent, Sleep Apnea, SOB Gastrointestinal History: Reports: GERD Genitourinary History: Reports: Urinary Incontinence, Other (See Below) Other Genitourinary History: elevated BUN WOMEN DESIGNER History: Reports: Other WOMEN DESIGNER History: no Musculoskeletal History: Reports: Osteoarthritis Other Musculoskeletal History: chronic pain lower extremties, complete tear of rotator cuff Neurological History: Reports: CVA, Neuropathy, Diabetic Psychiatric History: Reports: Addiction, Anxiety, Depression Endocrine/Metabolic History: Reports: Diabetes, Type II, IDDM, Obesity/BMI 30+ Hematologic History: Reports: Other (See Below) Other Hematologic History: leukocytosis Immunologic History: Reports: None Oncologic (Cancer) History: Reports: None Dermatologic History: Reports: Venous Stasis Dermatitis, Other (See Below) Other Dermatologic History: non-healing wounds to posterior right calf and abdominal folds. statis ulcers - Infectious Disease History Infectious Disease History: Reports: Chicken Pox, MRSA - Past Surgical History Head Surgeries/Procedures: Reports: None Cardiovascular Surgical History: Reports: Other (See Below) Other Neurological Surgeries/Procedures: Denies neuropathy Social & Family History - Family History Family Medical History: No Pertinent Family History - Tobacco Use Tobacco Use Status *Q: Current Every Day Tobacco User Years of Tobacco use: 40 Packs/Tins Daily: 1 - Caffeine Use Caffeine Use: Reports: Tea - Recreational Drug Use Recreational Drug Use: No - Living Situation & Occupation Living situation: Reports: , with Family Occupation: Disabled ED ROS GENERAL - Review of Systems Review Of Systems: Comprehensive ROS is negative, except as noted in HPI. ED EXAM, GENERAL - Physical Exam Exam: See Below Exam Limited By: No Limitations General Appearance: Alert, WD/WN, Moderate Distress, Obese Eye Exam: Bilateral Eye: EOMI, Normal Inspection, PERRL Ears: Normal External Exam, Normal Canal, Hearing Grossly Normal, Normal TMs Nose: Normal Inspection, Normal Mucosa, No Blood Throat/Mouth: Normal Inspection, Normal Lips, Normal Teeth, Normal Gums, Normal Oropharynx, Normal Voice, No Airway Compromise Head: Atraumatic, Normocephalic Neck: Normal Inspection, Supple, Non-Tender, Full Range of Motion Respiratory/Chest: Decreased Breath Sounds, Rhonchi (diffuse) Cardiovascular: Normal Peripheral Pulses, Regular Rate, Rhythm, No Edema, No Gallop, No JVD, No Murmur, No Rub GI/Abdominal: Normal Bowel Sounds, Soft, Non-Tender, No Organomegaly, No Distention, No Abnormal Bruit, No Mass (Female) Exam: Deferred Rectal (Female) Exam: Deferred Back Exam: Normal Inspection, Full Range of Motion, NT Extremities: Arm Pain, Leg Pain Neurological: Alert, Oriented, CN II-XII Intact, Normal Cognition, Normal Gait, Normal Reflexes, No Motor/Sensory Deficits Psychiatric: Normal Affect, Normal Mood Skin Exam: Warm, Dry, Intact, Normal Color, No Rash Lymphatic: No Adenopathy Course - Vital Signs Last Recorded V/S: Last Vital Signs Temp 36.4 C 12/12/20 15:26 Pulse 71 12/12/20 15:26 Resp 20 12/12/20 15:26 BP 147/69 H 12/12/20 15:26 Pulse Ox 98 12/12/20 15:26 - Orders/Labs/Meds Orders: Active Orders 24 hr Category Date Time Status CORONAVIRUS COVID-19 LEONARDO [MOLEC] Urgent Lab 12/12/20 16:34 Ordered CULTURE BLOOD [BC] Stat Lab 12/12/20 15:55 Received UA RFX FREDERICK AND CULT IF INDIC [URIN] Urgent Lab 12/12/20 15:39 Ordered Sodium Chloride 0.9% [Normal Saline] 1,000 ml Med 12/12/20 15:45 Active IV ASDIRECTED Medication Orders Sodium Chloride (Normal Saline) 1,000 mls @ 75 mls/hr IV ASDIRECTED DANIELLE Last Admin: 12/12/20 16:40 Dose: 75 mls/hr Documented by: EWELINA Labs: Laboratory Tests 12/12/20 12/12/20 12/12/20 Range/Units 15:55 15:55 15:55 WBC 10.6 H (5.0-10.0) 10^3/uL RBC 2.66 L (4.2-5.4) 10^6/uL Hgb 7.3 L D (12.0-16.0) g/dL Hct 23.0 L (37.0-47.0) % MCV 86.5 D (80-100) fL MCH 27.4 (27.0-34.0) pg MCHC 31.7 L (33.0-35.0) g/dL Plt Count 299 (150-450) 10^3/uL Neut % (Auto) 67.8 (42.2-75.2) % Lymph % (Auto) 21.7 (20.5-50.1) % Stanley % (Auto) 9.4 H (2-8) % Eos % (Auto) 0.9 L (1.0-3.0) % Baso % (Auto) 0.2 (0.0-1.0) % Sodium 139 (136-145) mmol/L Potassium 3.3 L (3.5-5.1) mmol/L Chloride 101 (98-107) mmol/L Carbon Dioxide 28 (21-32) mmol/L Anion Gap 13.3 H (7-13) mEq/L BUN 59 H D (7-18) mg/dL Creatinine 3.60 H D (0.55-1.02) mg/dL Est Cr Clr Drug Dosing 13.23 mL/min Estimated GFR (MDRD) 13 BUN/Creatinine Ratio 16.4 (No establ ref range) Glucose 78 (74-99) mg/dL Lactic Acid 1.1 (0.4-2.0) mmol/L Calcium 8.5 (8.5-10.1) mg/dL Magnesium 2.0 (1.8-2.4) mg/dL Total Bilirubin 0.3 (0.2-1.0) mg/dL AST 14 L (15-37) U/L ALT 14 (14-59) U/L Alkaline Phosphatase 109 (46-116) U/L B-Natriuretic Peptide 1400 H (0-100) pg/ml Total Protein 8.1 (6.4-8.2) g/dL Albumin 3.1 L (3.4-5.0) g/dL Globulin 5.0 Albumin/Globulin Ratio 0.62 Meds: Medications Generic Name Dose Route Start Last Admin Trade Name Freq PRN Reason Stop Dose Admin Sodium Chloride 1,000 mls @ 75 mls/hr 12/12/20 15:45 12/12/20 16:40 Normal Saline IV 75 mls/hr ASDIRECTED DANIELLE Administration Departure - Departure Time of Disposition: 16:49 Disposition: DC/Tfer to Acute Hospital 02 Condition: Serious Clinical Impression: Acute renal failure Qualifiers: Acute renal failure type: unspecified Qualified Code(s): N17.9 - Acute kidney failure, unspecified CHF (congestive heart failure) Qualifiers: Heart failure type: unspecified Heart failure chronicity: acute on chronic Qualified Code(s): I50.9 - Heart failure, unspecified - Discharge Information *PRESCRIPTION DRUG MONITORING PROGRAM REVIEWED*: Not Applicable *COPY OF PRESCRIPTION DRUG MONITORING REPORT IN PATIENT MULU: Not Applicable Forms: Interfacility Transfer EMTALA Care Plan Goals: Discussed the patient's history, examination and lab results with Dr. Rodriguez. Dr. Rodriguez accepted the patient for continued evaluation and further management as an inpatient at [facility] in [place]. The patient will be transported by [facility]. Sepsis Event Note (ED) - Evaluation Sepsis Screening Result: No Definite Risk - Focused Exam Vital Signs: Vital Signs Temp Pulse Resp BP Pulse Ox 12/12/20 15:26 36.4 C 71 20 147/69 H 98 - My Orders Last 24 Hours: My Active Orders 12/12/20 15:39 UA RFX FR[place]ICK AND CULT IF INDIC [URIN] Urgent 12/12/20 15:45 Sodium Chloride 0.9% [Normal Saline] 1,000 ml IV ASDIRECTED 12/12/20 15:55 CULTURE BLOOD [BC] Stat 12/12/20 16:34 CORONAVIRUS COVID-19 LEONARDO [MOLEC] Urgent - Assessment/Plan Last 24 Hours: My Active Orders 12/12/20 15:39 UA RFX [place] AND CULT IF INDIC [URIN] Urgent 12/12/20 15:45 Sodium Chloride 0.9% [Normal Saline] 1,000 ml IV ASDIRECTED 12/12/20 15:55 CULTURE BLOOD [BC] Stat 12/12/20 16:34 CORONAVIRUS COVID-19 LEONARDO [MOLEC] Urgent
[2020-12-12 16:21] LABS: ANION GAP 13.3 mEq/L (7-13)
== END 2020-12-12 18:48 ==
LOC: DL.ED 15:15
DX: I11.0 Hypertensive heart disease with heart failure (principal); I50.9 Heart failure, unspecified; N17.9 Acute kidney failure, unspecified; I48.91 Unspecified atrial fibrillation; E11.40 Type 2 diabetes mellitus with diabetic neuropathy, unspecified; E66.9 Obesity, unspecified; J44.9 Chronic obstructive pulmonary disease, unspecified; I25.10 Atherosclerotic heart disease of native coronary artery without angina pectoris; E78.00 Pure hypercholesterolemia, unspecified; Z72.0 Tobacco use; Z88.5 Allergy status to narcotic agent; Z88.0 Allergy status to penicillin; Z88.8 Allergy status to other drugs, medicaments and biological substances; Z79.82 Long term (current) use of aspirin; Z79.01 Long term (current) use of anticoagulants; Z79.899 Other long term (current) drug therapy; Z68.42 Body mass index [BMI] 45.0-49.9, adult; Z20.828 Contact with and (suspected) exposure to other viral communicable diseases
CPT/HCPCS: 36415; 80053; 81001; 83605; 83735; 83880; 85025; 87040; 87086; 87088; 87186; 99284; 99285; J7030; U0002

== ENCOUNTER 2021-01-03 12:32 | Emergency (ER) | payer MEDICAID ==
[2021-01-03 12:49] VITALS: BP 158/74; PULSE 75
[2021-01-03 13:40] LABS: ANION GAP 12.4 mEq/L (7-13); CHLORIDE,CL 100 mmol/L (98-107); SODIUM,NA 138 mmol/L (136-145)
--- NOTE | 2021-01-03 13:54 | EDM.PDOC ---
ED HPI GENERAL MEDICAL PROBLEM - General Chief Complaint: General Stated Complaint: AMBULANCE Time Seen by Provider: 01/03/21 13:00 Source of Information: Reports: Patient, Family, RN, RN Notes Reviewed History Limitations: Reports: Altered Mental Status - History of Present Illness INITIAL COMMENTS - FREE TEXT/NARRATIVE: Patient is a 65-year-old female who presents to ER per [facility] with complaint of weakness. states the patient was discharged from [facility] on December 19. Patient was transferred there for acute kidney injury, decreased kidney function. Patient states she feels she needs more care, agrees to be assessed for prison placement. She states she does not feel her and her children take care of her very well at home. states patient is very difficult to take care of up at home, and is verbally abusive, is always yelling at them in the house. He states she has been declining since she did was discharged from the hospital, and especially since January 01. Patient is on 2 L per nasal cannula at home at baseline, is on oxygen per nasal cannula upon arrival with no respiratory distress. Patient denies any other complaints of other than weakness and inability to care for herself. feels patient has had increased confusion recently. Onset: Gradual - Related Data Allergies Allergy/AdvReac Type Severity Reaction Status Date / Time vancomycin Allergy Mild Redness Verified 01/03/21 12:44 adhesive tape Allergy Rash Verified 01/03/21 12:44 oxycodone Allergy Nausea and Verified 01/03/21 12:44 Vomiting Penicillins Allergy Rash Verified 01/03/21 12:44 piperacillin sodium Allergy Rash Verified 01/03/21 12:44 [From Zosyn] tazobactam sodium Allergy Rash Verified 01/03/21 12:44 [From Zosyn] Home Meds: Home Meds Albuterol [Ventolin HFA] 1 puff INH Q4H PRN 06/04/19 [History] Amiodarone [Cordarone] 200 mg PO DAILY 06/04/19 [History] Aspirin [Halfprin] 81 mg PO DAILY 06/04/19 [History] DULoxetine [Cymbalta] 60 mg PO DAILY 06/04/19 [History] Potassium Chloride 10 meq PO DAILY 06/04/19 [History] Rivaroxaban [Xarelto] 15 mg PO DAILY 06/04/19 [History] Tiotropium [Spiriva Handihaler] 1 puff INH DAILY 06/04/19 [History] Baclofen 5 mg PO BID PRN 01/03/21 [History] Budesonide [Pulmicort] 0.5 mg IH BID 01/03/21 [History] Bumetanide [Bumex] 1 mg PO DAILY 01/03/21 [History] Calcium Carbonate/Vitamin D3 [Calcium 600-Vit D3 800 Caplet] 1 each PO DAILY 01/03/21 [History] Ferrous Sulfate [Iron] 325 mg PO DAILY 01/03/21 [History] Gabapentin [Neurontin] 100 mg PO BID 01/03/21 [History] [place]-3/DHA/Epa/Fish Oil [[place] 3 500 Softgel] 1 cap PO DAILY 01/03/21 [History] Rosuvastatin [Crestor] 5 mg PO BEDTIME 01/03/21 [History] Sennosides/Docusate Sodium [Senna-Docusate Sodium Tablet] 1 tab PO DAILY 01/03/21 [History] Vitamin B Comp W-C/FA/Zinc [Anel B Strong with C & Zinc Tb] 1 tab PO DAILY 01/03/21 [History] oxyCODONE 5 mg PO Q6H PRN 01/03/21 [History] Past Medical History HEENT History: Reports: Impaired Vision Cardiovascular History: Reports: Afib, CAD, Cardiomyopathy, Heart Failure, High Cholesterol, Hypertension, SOB on Exertion Respiratory History: Reports: Asthma, Bronchitis, Recurrent, COPD, Interstitial Lung Disease, Pneumonia, Recurrent, Sleep Apnea, SOB Gastrointestinal History: Reports: GERD Genitourinary History: Reports: Urinary Incontinence, Other (See Below) Other Genitourinary History: elevated BUN MEDICAL REIMBURSEMENT MANAGER History: Reports: Other MEDICAL REIMBURSEMENT MANAGER History: no Musculoskeletal History: Reports: Osteoarthritis Other Musculoskeletal History: chronic pain lower extremties, opoid dependence, ccomplete tear of rotator cuff, impaired activities of daily living Neurological History: Reports: CVA, Neuropathy, Diabetic Psychiatric History: Reports: Anxiety, Depression Endocrine/Metabolic History: Reports: Diabetes, Type II, IDDM, Obesity/BMI 30+ Hematologic History: Reports: Other (See Below) Other Hematologic History: leukocytosis Immunologic History: Reports: None Oncologic (Cancer) History: Reports: None Dermatologic History: Reports: Venous Stasis Dermatitis, Other (See Below) Other Dermatologic History: non-healing wounds to posterior right calf and abdominal folds. statis ulcers - Infectious Disease History Infectious Disease History: Reports: Chicken Pox, MRSA - Past Surgical History Head Surgeries/Procedures: Reports: None Cardiovascular Surgical History: Reports: Other (See Below) Other Cardiovascular Surgeries/Procedures: Patient denies CAD, cardiomyopathy, heart failure, high cholesterol, hypertension, and SOB- 08/04/19 Other Respiratory Surgeries/Procedures: Denies Asthma, bronchitis- 08/04/19 Other GI Surgeries/Procedures: denies gerd- 08/04/19 Other Endocrine Surgeries/Procedures: Denies DMII- 08-04-19 Other Neurological Surgeries/Procedures: Denies neuropathy Social & Family History - Family History Family Medical History: No Pertinent Family History - Tobacco Use Tobacco Use Status *Q: Never Tobacco User - Caffeine Use Caffeine Use: Reports: None - Recreational Drug Use Recreational Drug Use: No - Living Situation & Occupation Living situation: Reports: , with Family Occupation: Disabled ED ROS GENERAL - Review of Systems Review Of Systems: Comprehensive ROS is negative, except as noted in HPI. ED EXAM, GENERAL - Physical Exam Exam: See Below Exam Limited By: No Limitations General Appearance: Alert, WD/WN, Anxious, Mild Distress Eye Exam: Bilateral Eye: EOMI, Normal Inspection Ears: Normal External Exam, Hearing Grossly Normal Nose: Normal Inspection Throat/Mouth: Normal Inspection, Normal Voice, No Airway Compromise Head: Atraumatic, Normocephalic Neck: Normal Inspection, Supple, Non-Tender, Full Range of Motion Respiratory/Chest: Decreased Breath Sounds, Crackles (throughtout) Cardiovascular: Normal Peripheral Pulses, Regular Rate, Rhythm, Other (bilateral lymphedema) Peripheral Pulses: 2+: Radial (L), Radial (R) GI/Abdominal: Normal Bowel Sounds, Soft, Non-Tender (Female) Exam: Deferred Rectal (Female) Exam: Deferred Back Exam: Normal Inspection, Full Range of Motion, NT Extremities: Normal Inspection, Normal Capillary Refill, Pedal Edema, Limited Range of Motion Neurological: Alert, Oriented Psychiatric: Anxious, Depressed Mood, Tearful Skin Exam: Warm, Dry, Intact, Normal Color, No Rash Lymphatic: No Adenopathy Course - Vital Signs Last Recorded V/S: Last Vital Signs Temp 96.4 F L 01/03/21 12:48 Pulse 75 01/03/21 12:48 Resp 25 H 01/03/21 12:48 BP 158/74 H 01/03/21 12:48 Pulse Ox 100 01/03/21 12:48 - Orders/Labs/Meds Orders: Active Orders 24 hr Category Date Time Status EKG Documentation Completion [RC] STAT Care 01/03/21 12:46 Active Insert Jansen Catheter [Insert Urinary Catheter] [OM.PC] Care 01/03/21 14:30 Or dered Q24H Urinary Catheter Assessment [RC] ASDIRECTED Care 01/03/21 14:19 Active CULTURE BLOOD [BC] Stat Lab 01/03/21 12:59 Results CULTURE BLOOD [BC] Stat Lab 01/03/21 13:03 Received Blood Culture x2 Reflex Set [OM.PC] Stat Oth 01/03/21 12:49 Ordered Labs: Laboratory Tests 01/03/21 01/03/21 01/03/21 Range/Units 13:03 13:03 13:03 WBC 10.5 H (5.0-10.0) 10^3/uL RBC 2.76 L (4.2-5.4) 10^6/uL Hgb 7.5 L (12.0-16.0) g/dL Hct 25.0 L (37.0-47.0) % MCV 90.6 D (80-100) fL MCH 27.2 (27.0-34.0) pg MCHC 30.0 L (33.0-35.0) g/dL Plt Count 331 (150-450) 10^3/uL Neut % (Auto) 73.5 (42.2-75.2) % Lymph % (Auto) 16.9 L (20.5-50.1) % Blanco % (Auto) 8.2 H (2-8) % Eos % (Auto) 1.1 (1.0-3.0) % Baso % (Auto) 0.3 (0.0-1.0) % PT 13.2 H (9.0-12.0) SEC INR 1.4 H (0.9-1.2) ABG pH (7.35-7.45) ABG pCO2 (35-45) mmHg ABG pO2 (70-100) mmHg ABG HCO3 (22-26) mmol/L ABG O2 Saturation (95-100) % ABG Base Excess ((-2)-(+3)) mmol/L Boo Test O2 Delivery Device Sodium 138 (136-145) mmol/L Potassium 4.4 (3.5-5.1) mmol/L Chloride 100 (98-107) mmol/L Carbon Dioxide 30 (21-32) mmol/L Anion Gap 12.4 (7-13) mEq/L BUN 45 H (7-18) mg/dL Creatinine 3.01 H (0.55-1.02) mg/dL Est Cr Clr Drug Dosing TNP Estimated GFR (MDRD) 16 BUN/Creatinine Ratio 15.0 (No establ ref range) Glucose 86 (74-99) mg/dL Lactic Acid (0.4-2.0) mmol/L Calcium 8.7 (8.5-10.1) mg/dL Total Bilirubin 0.3 (0.2-1.0) mg/dL AST 18 (15-37) U/L ALT 22 (14-59) U/L Alkaline Phosphatase 114 (46-116) U/L C-Reactive Protein 6.2 H (0.0-0.9) mg/dL B-Natriuretic Peptide 1480 H (0-100) pg/ml Total Protein 8.0 (6.4-8.2) g/dL Albumin 2.7 L (3.4-5.0) g/dL Globulin 5.3 Albumin/Globulin Ratio 0.51 Urine Color (YELLOW) Urine Appearance (CLEAR) Urine pH (5.0-9.0) Ur Specific Grady (1.005-1.030) Urine Protein (NEGATIVE) Urine Glucose (UA) (NEGATIVE) Urine Ketones (NEGATIVE) Urine Occult Blood (NEGATIVE) Urine Nitrite (NEGATIVE) Urine Bilirubin (NEGATIVE) Urine Urobilinogen (0.2-1.0) mg/dL Ur Leukocyte Esterase (NEGATIVE) Urine RBC /HPF Urine WBC (0-5/HPF) /HPF Ur Epithelial Cells (NOT SEEN) /HPF Urine Bacteria (0-FEW/HPF) /HPF Urine Yeast (NOT SEEN) /HPF Urine Opiates Screen (NEGATIVE) Ur Oxycodone Screen (NEGATIVE) Urine Methadone Screen (NEGATIVE) Ur Barbiturates Screen (NEGATIVE) U Tricyclic Antidepress (NEGATIVE) Ur Phencyclidine Scrn (NEGATIVE) Ur Amphetamine Screen (NEGATIVE) U Methamphetamines Scrn (NEGATIVE) Urine MDMA Screen (NEGATIVE) U Benzodiazepines Scrn (NEGATIVE) Urine Cocaine Screen (NEGATIVE) U Marijuana (THC) Screen (NEGATIVE) Ethyl Alcohol < 3 (0) mg/dL SARS-CoV-2 RNA (LEONARDO) (NEGATIVE) 01/03/21 01/03/21 01/03/21 Range/Units 13:03 13:07 13:12 WBC (5.0-10.0) 10^3/uL RBC (4.2-5.4) 10^6/uL Hgb (12.0-16.0) g/dL Hct (37.0-47.0) % MCV (80-100) fL MCH (27.0-34.0) pg MCHC (33.0-35.0) g/dL Plt Count (150-450) 10^3/uL Neut % (Auto) (42.2-75.2) % Lymph % (Auto) (20.5-50.1) % Blanco % (Auto) (2-8) % Eos % (Auto) (1.0-3.0) % Baso % (Auto) (0.0-1.0) % PT (9.0-12.0) SEC INR (0.9-1.2) ABG pH 7.36 (7.35-7.45) ABG pCO2 48 H (35-45) mmHg ABG pO2 75 (70-100) mmHg ABG HCO3 26.7 H (22-26) mmol/L ABG O2 Saturation 96 (95-100) % ABG Base Excess 2 ((-2)-(+3)) mmol/L Boo Test Performed O2 Delivery Device Nasal cannula Sodium (136-145) mmol/L Potassium (3.5-5.1) mmol/L Chloride (98-107) mmol/L Carbon Dioxide (21-32) mmol/L Anion Gap (7-13) mEq/L BUN (7-18) mg/dL Creatinine (0.55-1.02) mg/dL Est Cr Clr Drug Dosing Estimated GFR (MDRD) BUN/Creatinine Ratio (No establ ref range) Glucose (74-99) mg/dL Lactic Acid 0.7 (0.4-2.0) mmol/L Calcium (8.5-10.1) mg/dL Total Bilirubin (0.2-1.0) mg/dL AST (15-37) U/L ALT (14-59) U/L Alkaline Phosphatase (46-116) U/L C-Reactive Protein (0.0-0.9) mg/dL B-Natriuretic Peptide (0-100) pg/ml Total Protein (6.4-8.2) g/dL Albumin (3.4-5.0) g/dL Globulin Albumin/Globulin Ratio Urine Color (YELLOW) Urine Appearance (CLEAR) Urine pH (5.0-9.0) Ur Specific [place]ady (1.005-1.030) Urine Protein (NEGATIVE) Urine Glucose (UA) (NEGATIVE) Urine Ketones (NEGATIVE) Urine Occult Blood (NEGATIVE) Urine Nitrite (NEGATIVE) Urine Bilirubin (NEGATIVE) Urine Urobilinogen (0.2-1.0) mg/dL Ur Leukocyte Esterase (NEGATIVE) Urine RBC /HPF Urine WBC (0-5/HPF) /HPF Ur Epithelial Cells (NOT SEEN) /HPF Urine Bacteria (0-FEW/HPF) /HPF Urine Yeast (NOT SEEN) /HPF Urine Opiates Screen (NEGATIVE) Ur Oxycodone Screen (NEGATIVE) Urine Methadone Screen (NEGATIVE) Ur Barbiturates Screen (NEGATIVE) U Tricyclic Antidepress (NEGATIVE) Ur Phencyclidine Scrn (NEGATIVE) Ur Amphetamine Screen (NEGATIVE) U Methamphetamines Scrn (NEGATIVE) Urine MDMA Screen (NEGATIVE) U Benzodiazepines Scrn (NEGATIVE) Urine Cocaine Screen (NEGATIVE) U Marijuana (THC) Screen (NEGATIVE) Ethyl Alcohol (0) mg/dL SARS-CoV-2 RNA (LEONARDO) Negative (NEGATIVE) 01/03/21 01/03/21 Range/Units 14:19 14:19 WBC (5.0-10.0) 10^3/uL RBC (4.2-5.4) 10^6/uL Hgb (12.0-16.0) g/dL Hct (37.0-47.0) % MCV (80-100) fL MCH (27.0-34.0) pg MCHC (33.0-35.0) g/dL Plt Count (150-450) 10^3/uL Neut % (Auto) (42.2-75.2) % Lymph % (Auto) (20.5-50.1) % Blanco % (Auto) (2-8) % Eos % (Auto) (1.0-3.0) % Baso % (Auto) (0.0-1.0) % PT (9.0-12.0) SEC INR (0.9-1.2) ABG pH (7.35-7.45) ABG pCO2 (35-45) mmHg ABG pO2 (70-100) mmHg ABG HCO3 (22-26) mmol/L ABG O2 Saturation (95-100) % ABG Base Excess ((-2)-(+3)) mmol/L Boo Test O2 Delivery Device Sodium (136-145) mmol/L Potassium (3.5-5.1) mmol/L Chloride (98-107) mmol/L Carbon Dioxide (21-32) mmol/L Anion Gap (7-13) mEq/L BUN (7-18) mg/dL Creatinine (0.55-1.02) mg/dL Est Cr Clr Drug Dosing Estimated GFR (MDRD) BUN/Creatinine Ratio (No establ ref range) Glucose (74-99) mg/dL Lactic Acid (0.4-2.0) mmol/L Calcium (8.5-10.1) mg/dL Total Bilirubin (0.2-1.0) mg/dL AST (15-37) U/L ALT (14-59) U/L Alkaline Phosphatase (46-116) U/L C-Reactive Protein (0.0-0.9) mg/dL B-Natriuretic Peptide (0-100) pg/ml Total Protein (6.4-8.2) g/dL Albumin (3.4-5.0) g/dL Globulin Albumin/Globulin Ratio Urine Color Yellow (YELLOW) Urine Appearance Cloudy (CLEAR) Urine pH 5.5 (5.0-9.0) Ur Specific Grady 1.020 (1.005-1.030) Urine Protein 100 H (NEGATIVE) Urine Glucose (UA) Negative (NEGATIVE) Urine Ketones Negative (NEGATIVE) Urine Occult Blood Large H (NEGATIVE) Urine Nitrite Negative (NEGATIVE) Urine Bilirubin Negative (NEGATIVE) Urine Urobilinogen 0.2 (0.2-1.0) mg/dL Ur Leukocyte Esterase Negative (NEGATIVE) Urine RBC Semi-packed H /HPF Urine WBC 0-5 (0-5/HPF) /HPF Ur Epithelial Cells Few (NOT SEEN) /HPF Urine Bacteria Few (0-FEW/HPF) /HPF Urine Yeast Moderate H (NOT SEEN) /HPF Urine Opiates Screen Negative (NEGATIVE) Ur Oxycodone Screen Negative (NEGATIVE) Urine Methadone Screen Negative (NEGATIVE) Ur Barbiturates Screen Negative (NEGATIVE) U Tricyclic Antidepress Negative (NEGATIVE) Ur Phencyclidine Scrn Negative (NEGATIVE) Ur Amphetamine Screen Negative (NEGATIVE) U Methamphetamines Scrn Negative (NEGATIVE) Urine MDMA Screen Negative (NEGATIVE) U Benzodiazepines Scrn Negative (NEGATIVE) Urine Cocaine Screen Negative (NEGATIVE) U Marijuana (THC) Screen Negative (NEGATIVE) Ethyl Alcohol (0) mg/dL SARS-CoV-2 RNA (LEONARDO) (NEGATIVE) Meds: Medications Discontinued Medications Generic Name Dose Route Start Last Admin Trade Name Freq PRN Reason Stop Dose Admin Furosemide 80 mg 01/03/21 16:34 01/03/21 16:39 Lasix IVPUSH 01/03/21 16:35 80 mg NOW ONE Administration - Radiology Interpretation Free Text/Narrative:: Chest x-ray: Abnormal Radiologist request chest CT without contrast Chest CT without contrast: 1. Pronounced cardiomegaly, coronary artery calcifications. Dense calcifications aortic valve/arch of the thoracic aorta. No pericardial effusion or pulmonary vascular congestion. No alveolar edema. No dependent effusion on the left. 2. Multilobar consolidation i.e. infiltrate and/or atelectasis involving both upper and lower lobes, TB-like nodular infiltrate or mass, left upper lobe. Dense new right lower lobe consolidation, aspiration? Bronchial obstruction?, Mediastinal and supraclavicular lymphadenopathy; asymmetric right perihilar lymphadenopathy/mass; new ipsilateral dependent right pleural effusion. 3. Unenhanced upper abdominal viscera unremarkable. Ectasia but normal caliber thoracic aorta. 4. Osteoporosis. Several mid thoracic vertebral body compression fractures. Severe kyphosis, gibbus, dorsal spine. Conclusion: Abnormal heart. Extensive lymphadenopathy. Multilobar infiltrates, questionable mass. Possible aspiration pneumonia and heart failure however suspicious for possible underlying malignancy in this smoker. Note: These findings new since comparison CT exam [address]: 1. Asymmetric large new area of ischemic infarct/encephalomalacia since 2015 involving left parietal lobe. Differential consideration includes an infiltrative neoplasm, metastasis, and recommend unenhanced MRI follow-up. 2. Uniformly thick bony calvarium. Symmetric clear pneumatization of the paranasal and mastoid sinuses. 3. Mild atrophy and scattered areas of decreased attenuation throughout the periventricular white matter both hemispheres consistent with microvascular ischemic change, or metastasis. 4. No sign of intracranial mass-effect. No evidence of acute intracerebral, intraventricular, or subarachnoid bleed. 5. No abnormal extracerebral/intracranial epidural or subdural hematomas. 6. Cerebellum and brainstem unremarkable. See radiologist report - Re-Assessments/Exams Free Text/Narrative Re-Assessment/Exam: 01/03/21 16:44 Dr. Butterfield declined admission for the patient. States she needs an MRI today. [facility] called at [phone] for transfer, [facility] states they will call back when they know if they have a bed. At [phone] provider called [facility] back to see if they had a bed to transfer. Discussed patient case with Dr. Szymanski who agreed to accept the patient for transfer to [facility]. Departure - Departure Time of Disposition: 16:49 Disposition: DC/Tfer to [facility] 02 Condition: Fair Clinical Impression: Acute encephalopathy Kidney failure Qualifiers: Renal failure chronicity: chronic Chronic kidney disease stage: unspecified stage Qualified Code(s): N18.9 - Chronic kidney disease, unspecified - Discharge Information *PRESCRIPTION DRUG MONITORING PROGRAM REVIEWED*: No *COPY OF PRESCRIPTION DRUG MONITORING REPORT IN PATIENT MULU: No Forms: ED Department Discharge, Interfacility Transfer EMTALA Sepsis Event Note (ED) - Evaluation Sepsis Screening Result: Possible Sepsis Risk - Focused Exam Vital Signs: Vital Signs Temp Pulse Resp BP Pulse Ox 01/03/21 12:48 96.4 F L 75 25 H 158/74 H 100 - My Orders Last 24 Hours: My Active Orders 01/03/21 12:46 EKG Documentation Completion [RC] STAT 01/03/21 12:49 Blood Culture x2 Reflex Set [OM.PC] Stat 01/03/21 12:59 CULTURE BLOOD [BC] Stat 01/03/21 13:03 CULTURE BLOOD [BC] Stat 01/03/21 14:19 Urinary Catheter Assessment [RC] ASDIRECTED 01/03/21 14:30 Insert Jansen Catheter [Insert Urinary Catheter] [OM.PC] Q24H - Assessment/Plan Last 24 Hours: My Active Orders 01/03/21 12:46 EKG Documentation Completion [RC] STAT 01/03/21 12:49 Blood Culture x2 Reflex Set [OM.PC] Stat 01/03/21 12:59 CULTURE BLOOD [BC] Stat 01/03/21 13:03 CULTURE BLOOD [BC] Stat 01/03/21 14:19 Urinary Catheter Assessment [RC] ASDIRECTED 01/03/21 14:30 Insert Jansen Catheter [Insert Urinary Catheter] [OM.PC] Q24H
[2021-01-03 14:00] LABS: ALLEN TEST PERFORMED; BASE EXCESS ARTERIAL 2 mmol/L ((-2)-(+3)); BICARBONATE,ARTERIAL 26.7 mmol/L (22-26); O2 DELIVERY DEVICE NASAL CANNULA; O2 SATURATION ARTERIAL 96 % (95-100); PCO2 ARTERIAL 48 mmHg (35-45); PO2 ARTERIAL 75 mmHg (70-100)
--- NOTE | 2021-01-03 14:19 | CR ---
EXAMINATION: Chest 1V Frontal SEX: Female AGE: 65 years CLINICAL HISTORY: 65-year-old obese female in the emergency department with CHEST PAIN. INTERPRETATION: Abnormal. 1. Despite technical difficulties (patient's size and poor inspiratory effort) there appears to be dense new right lower lobe consolidation in this patient with cardiomegaly and probable subpulmonic pleural effusions. 2. Asymmetric increased density in the right hilar region since comparison film 04 August 2019. 3. No pneumothorax or pneumomediastinum. Discussion: Abnormalities chest but considering technical challenges recommend follow-up unenhanced CT scan. CONCLUSION:
--- NOTE | 2021-01-03 14:34 | CT ---
EXAMINATION: Chest wo Cont SEX: Female AGE: 65 years CLINICAL HISTORY: 65 year-old 277 pound confused obese female SMOKER with abnormal AP chest x-ray (technically compromised by patient's girth and inspiratory effort). CT chest suggested per Dr. Bazan, radiologist. Markedly abnormal BNP. Comparison CT exam 01 October 2017 this institution. Scan technique: Volume acquisition of data unenhanced (renal disease) CT scan of the chest (bony thorax, lungs and mediastinum) obtained with the patient lying supine on the Siemens multislice scanner [place], [place]. All data archived in the PACS system for storage, reformatting axial/sagittal/coronal planes and study (lung/mediastinal windows). Interpretation: Abnormal. 1. Pronounced Cardiomegaly (coronary artery calcifications). Dense calcifications aortic valve/arch of the thoracic aorta. No pericardial effusion or pulmonary vascular congestion. No alveolar edema. No dependent effusion on the left. 2. *Multilobar consolidation i.e. infiltrate and/or atelectasis involving both upper and lower lobes (TB like nodular infiltrate or mass, MIR). Dense new RLL consolidation (aspiration? Bronchial obstruction?); mediastinal and supraclavicular lymphadenopathy; asymmetric right perihilar lymphadenopathy/mass; new ipsilateral dependent right pleural effusion. 3. Unenhanced upper abdominal viscera unremarkable. Ectasia but normal caliber thoracic aorta. 4. Osteoporosis. Several mid thoracic vertebral body compression fractures. Severe kyphosis (gibbus) dorsal spine. CONCLUSION: Abnormal heart. Extensive lymphadenopathy. Multilobar infiltrates (mass?). Possible aspiration pneumonia and heart failure however suspicious for possible underlying malignancy this smoker. Note: These findings new since comparison CT exam 01 October 2017.
[2021-01-03 14:37] LABS: AMPHETAMINES,URINE NEGATIVE (NEGATIVE); BARBITURATES,URINE NEGATIVE (NEGATIVE); BENZODIAZEPINE,URINE NEGATIVE (NEGATIVE); MDMA (ECSTASY), URINE NEGATIVE (NEGATIVE); METHADONE,URINE NEGATIVE (NEGATIVE); METHAMPHETAMINES,URINE NEGATIVE (NEGATIVE); OPIATES,URINE NEGATIVE (NEGATIVE); OXYCODONE,URINE NEGATIVE (NEGATIVE); PHENCYCLIDINE,URINE NEGATIVE (NEGATIVE); TCA,URINE NEGATIVE (NEGATIVE)
--- NOTE | 2021-01-03 14:44 | CT ---
EXAMINATION: Head wo Cont SEX: Female AGE: 65 years CLINICAL HISTORY: 65-year-old 277 pound female smoker with abnormal chest CT (" mass; infiltrates; lymphadenopathy; and cardiomegaly with effusion) who is CONFUSED. Chronic renal disease. Scan technique: Volume acquisition of data unenhanced CT scan of the head and brain obtained with patient lying supine on the Siemens multi slice scanner [place], [place]. All data archived in the PACS system for storage, reformatting axial/sagittal/coronal planes and study (bone/brain windows). Comparison October 2015. Interpretation: Abnormal. 1. *Asymmetric large new area of ischemic infarct/encephalomalacia since 2015 involving left parietal lobe. Differential consideration includes an infiltrative neoplasm (metastasis) and recommend unenhanced MRI follow-up. 2. Uniformly thick bony calvarium. Symmetric clear pneumatization of the paranasal and mastoid sinuses. 3. Mild atrophy and scattered areas of decreased attenuation throughout the periventricular white matter both hemispheres consistent with microvascular ischemic change (or metastasis). 4. No sign of intracranial mass effect. No evidence of acute intracerebral, intraventricular or subarachnoid bleed. 5. No abnormal extracerebral/intracranial epidural or subdural hematomas. 6. Cerebellum and brainstem unremarkable.
[2021-01-03] MEDS ORDERED: Furosemide 40 MG/4 ML VIAL IVPUSH ONE (16:34)
== END 2021-01-03 18:00 ==
LOC: DL.ED 12:32
DX: G93.40 Encephalopathy, unspecified (principal); I48.91 Unspecified atrial fibrillation; I25.10 Atherosclerotic heart disease of native coronary artery without angina pectoris; I13.0 Hypertensive heart and chronic kidney disease with heart failure and stage 1 through stage 4 chronic kidney disease, or unspecified chronic kidney disease; I50.9 Heart failure, unspecified; E11.22 Type 2 diabetes mellitus with diabetic chronic kidney disease; N18.9 Chronic kidney disease, unspecified; E78.00 Pure hypercholesterolemia, unspecified; J44.9 Chronic obstructive pulmonary disease, unspecified; K21.9 Gastro-esophageal reflux disease without esophagitis; M19.90 Unspecified osteoarthritis, unspecified site; E11.40 Type 2 diabetes mellitus with diabetic neuropathy, unspecified; Z86.73 Personal history of transient ischemic attack (TIA), and cerebral infarction without residual deficits; E66.9 Obesity, unspecified; Z88.1 Allergy status to other antibiotic agents; Z91.048 Other nonmedicinal substance allergy status; Z88.5 Allergy status to narcotic agent; Z88.0 Allergy status to penicillin; Z79.82 Long term (current) use of aspirin; Z79.01 Long term (current) use of anticoagulants; Z79.899 Other long term (current) drug therapy; Z20.822 Contact with and (suspected) exposure to COVID-19
CPT/HCPCS: 36415; 36600; 51702; 70450; 71045; 71250; 80053; 80305; 80307; 81001; 82803; 83605; 83880; 85025; 85610; 86140; 87040; 87635; 93005; 96374; 99285; J1940; 99284; U0002

== ENCOUNTER 2021-02-21 13:08 | Emergency (ER) | payer MEDICAID ==
--- NOTE | 2021-02-21 13:30 | EDM.PDOC ---
<John Arreola Patricia - Last Filed: 02/21/21 14:32> ED HPI GENERAL MEDICAL PROBLEM - General Chief Complaint: Lower Extremity Injury/Pain Stated Complaint: right foot swollen Time Seen by Provider: 02/21/21 13:25 Source of Information: Reports: Patient History Limitations: Reports: Other (chronic confusion) - History of Present Illness INITIAL COMMENTS - FREE TEXT/NARRATIVE: 65 y/o F brought inby EMS c/o R leg pain. Pt has chronic confusion and is a poor historian. She does not know when the pain started. EMS states they found pt at her home sitting on a bed waiting for them. Pt could not bear weight on her R leg. Was evaluated in [facility] on Jan 03 and transferred to [place] for hepatic encephalopathy. Onset: Unknown/Unsure Location: Reports: Lower Extremity, Right Quality: Reports: Sharp Severity: Severe Improves with: Reports: None Worsens with: Reports: Movement Right Leg Pain Score (Numeric/FACES): 10 - Related Data Allergies Allergy/AdvReac Type Severity Reaction Status Date / Time vancomycin Allergy Mild Redness Verified 01/03/21 12:44 adhesive tape Allergy Rash Verified 01/03/21 12:44 oxycodone Allergy Nausea and Verified 01/03/21 12:44 Vomiting Penicillins Allergy Rash Verified 01/03/21 12:44 piperacillin sodium Allergy Rash Verified 01/03/21 12:44 [From Zosyn] tazobactam sodium Allergy Rash Verified 01/03/21 12:44 [From Zosyn] Home Meds: Home Meds Albuterol [Ventolin HFA] 1 puff INH Q4H PRN 06/04/19 [History] Amiodarone [Cordarone] 200 mg PO DAILY 06/04/19 [History] Aspirin [Halfprin] 81 mg PO DAILY 06/04/19 [History] DULoxetine [Cymbalta] 60 mg PO DAILY 06/04/19 [History] Potassium Chloride 10 meq PO DAILY 06/04/19 [History] Rivaroxaban [Xarelto] 15 mg PO DAILY 06/04/19 [History] Tiotropium [Spiriva Handihaler] 1 puff INH DAILY 06/04/19 [History] Baclofen 5 mg PO BID PRN 01/03/21 [History] Budesonide [Pulmicort] 0.5 mg IH BID 01/03/21 [History] Bumetanide [Bumex] 1 mg PO DAILY 01/03/21 [History] Calcium Carbonate/Vitamin D3 [Calcium 600-Vit D3 800 Caplet] 1 each PO DAILY 01/03/21 [History] Ferrous Sulfate [Iron] 325 mg PO DAILY 01/03/21 [History] Gabapentin [Neurontin] 100 mg PO BID 01/03/21 [History] Randolph-3/DHA/Epa/Fish Oil [Randolph 3 500 Softgel] 1 cap PO DAILY 01/03/21 [History] Rosuvastatin [Crestor] 5 mg PO BEDTIME 01/03/21 [History] Sennosides/Docusate Sodium [Senna-Docusate Sodium Tablet] 1 tab PO DAILY 01/03/21 [History] Vitamin B Comp W-C/FA/Zinc [Anel B Strong with C & Zinc Tb] 1 tab PO DAILY [History] oxyCODONE 5 mg PO Q6H PRN 01/03/21 [History] Past Medical History HEENT History: Reports: Impaired Vision Cardiovascular History: Reports: Afib, CAD, Cardiomyopathy, Heart Failure, High Cholesterol, Hypertension, SOB on Exertion Respiratory History: Reports: Asthma, Bronchitis, Recurrent, COPD, Interstitial Lung Disease, Pneumonia, Recurrent, Sleep Apnea, SOB Gastrointestinal History: Reports: GERD Genitourinary History: Reports: Urinary Incontinence, Other (See Below) Other Genitourinary History: elevated BUN ENTERPRISE ENGINEER History: Reports: Other ENTERPRISE ENGINEER History: no Musculoskeletal History: Reports: Osteoarthritis Other Musculoskeletal History: chronic pain lower extremties, complete tear of rotator cuff Neurological History: Reports: CVA, Neuropathy, Diabetic Psychiatric History: Reports: Addiction, Anxiety, Depression Endocrine/Metabolic History: Reports: Diabetes, Type II, IDDM, Obesity/BMI 30+ Hematologic History: Reports: Other (See Below) Other Hematologic History: leukocytosis Immunologic History: Reports: None Oncologic (Cancer) History: Reports: None Dermatologic History: Reports: Venous Stasis Dermatitis, Other (See Below) Other Dermatologic History: non-healing wounds to posterior right calf and abdominal folds. statis ulcers - Infectious Disease History Infectious Disease History: Reports: Chicken Pox, MRSA - Past Surgical History Head Surgeries/Procedures: Reports: None Cardiovascular Surgical History: Reports: Other (See Below) Other Cardiovascular Surgeries/Procedures: Patient denies CAD, cardiomyopathy, heart failure, high cholesterol, hypertension, and SOB- 08/04/19 Other Respiratory Surgeries/Procedures: Denies Asthma, bronchitis- 08/04/19 Other GI Surgeries/Procedures: denies gerd- 08/04/19 Other Endocrine Surgeries/Procedures: Denies DMII- 08-04-19 Other Neurological Surgeries/Procedures: Denies neuropathy Social & Family History - Family History Family Medical History: No Pertinent Family History - Caffeine Use Caffeine Use: Reports: Tea - Living Situation & Occupation Living situation: Reports: , with Family Occupation: Disabled Review of Systems - Review of Systems Review Of Systems: Comprehensive ROS is negative, except as noted in HPI. ED EXAM, GENERAL - Physical Exam Exam: See Below Exam Limited By: No Limitations General Appearance: Alert, Other (chronically altered according to previous chart reviews) Throat/Mouth: Normal Inspection, Normal Lips, Normal Teeth, Normal Gums, Normal Oropharynx, Normal Voice, No Airway Compromise Head: Atraumatic, Normocephalic Neck: Normal Inspection, Supple, Non-Tender, Full Range of Motion Respiratory/Chest: No Respiratory Distress, Lungs Clear, Normal Breath Sounds, No Accessory Muscle Use, Chest Non-Tender Cardiovascular: Normal Peripheral Pulses, Regular Rate, Rhythm, No Edema, No Gallop, No JVD, No Murmur, No Rub GI/Abdominal: Soft, Non-Tender (Female) Exam: Deferred Rectal (Female) Exam: Deferred Back Exam: Normal Inspection, Full Range of Motion, NT Extremities: Other (Severe tenderness to R leg from hip to toes. 3 cm ulceration to the dorsal side of foot with dark necrotic edges. Leg is hot to the touch. Skin peeling on the dorsal aspect of foot. Skin peeling R lateral upper hip) Course - Re-Assessments/Exams Free Text/Narrative Re-Assessment/Exam: 02/21/21 14:32 With no nephrology or urology specialties available at this location it was dtermined that pt needs transferred to a higher level of care. [facility] was phoned and it was stated that they are at full capacity and have no beds available. [facility] was contact and accepted pt. Departure - Departure Time of Disposition: 14:32 Disposition: Home, Self-Care 01 Condition: Fair, Serious Clinical Impression: Cellulitis of foot Sepsis Qualifiers: Sepsis type: sepsis due to unspecified organism Sepsis acute organ dysfunction status: unspecified Qualified Code(s): A41.9 - Sepsis, unspecified organism Acute on chronic kidney failure Qualifiers: Acute renal failure type: unspecified Chronic kidney disease stage: unspecified stage Qualified Code(s): N17.9 - Acute kidney failure, unspecified - Discharge Information *PRESCRIPTION DRUG MONITORING PROGRAM REVIEWED*: Not Applicable *COPY OF PRESCRIPTION DRUG MONITORING REPORT IN PATIENT MULU: Not Applicable Forms: ED Department Discharge, Interfacility Transfer EMTALA <Osito Beard - Last Filed: 02/21/21 14:38> Course - Vital Signs Last Recorded V/S: Last Vital Signs Temp 98 F 02/21/21 13:22 Pulse 83 02/21/21 13:22 Resp 22 H 02/21/21 13:22 BP 119/61 02/21/21 13:22 Pulse Ox 95 02/21/21 13:22 - Orders/Labs/Meds Orders: Active Orders 24 hr Category Date Time Status EKG Documentation Completion [RC] STAT Care 02/21/21 13:19 Active AMMONIA VENOUS [CHEM] Stat Lab 02/21/21 13:37 Received CULTURE BLOOD [BC] Stat Lab 02/21/21 13:35 Results CULTURE BLOOD [BC] Stat Lab 02/21/21 13:37 Received CULTURE WOUND + SMEAR [RM] Stat Lab 02/21/21 13:43 Received UA RFX [place] AND CULT IF INDIC [URIN] Stat Lab 02/21/21 13:19 Ordered Sodium Chloride 0.9% [Normal Saline] 1,000 ml Med 02/21/21 14:01 Active IV .BOLUS Blood Culture x2 Reflex Set [OM.PC] Stat Oth 02/21/21 13:23 Ordered Medication Orders Sodium Chloride (Normal Saline) 1,000 mls @ 999 mls/hr IV .BOLUS ONE Stop: 02/21/21 15:01 Last Admin: 02/21/21 14:15 Dose: 999 mls/hr Documented by: MAXIMUS Labs: Laboratory Tests 02/21/21 02/21/21 02/21/21 Range/Units 13:37 13:37 13:37 WBC 47.3 H* (5.0-10.0) 10^3/uL RBC 3.57 L (4.2-5.4) 10^6/uL Hgb 9.4 L D (12.0-16.0) g/dL Hct 28.1 L (37.0-47.0) % MCV 78.7 L D (80-100) fL MCH 26.3 L (27.0-34.0) pg MCHC 33.5 (33.0-35.0) g/dL Plt Count 551 H D (150-450) 10^3/uL Neut % (Auto) 92.1 H (42.2-75.2) % Lymph % (Auto) 3.8 L (20.5-50.1) % [place] % (Auto) 4.0 (2-8) % Eos % (Auto) 0.0 L (1.0-3.0) % Baso % (Auto) 0.1 (0.0-1.0) % Add Manual Diff Yes Neutrophils % (Manual) 89 H (42-75) % Band Neutrophils % 6 % Lymphocytes % (Manual) 3 L (20-50) % Monocytes % (Manual) 2 (2-8) % Poikilocytosis 2+ moderate Target Cells 2+ moderate Sodium 132 L (136-145) mmol/L Potassium 5.0 (3.5-5.1) mmol/L Chloride 94 L (98-107) mmol/L Carbon Dioxide 20 L (21-32) mmol/L Anion Gap 23.0 H (7-13) mEq/L BUN 93 H D (7-18) mg/dL Creatinine 6.19 H* D (0.55-1.02) mg/dL Est Cr Clr Drug Dosing 7.36 mL/min Estimated GFR (MDRD) 7 BUN/Creatinine Ratio 15.0 (No establ ref range) Glucose 71 (70-99) mg/dL Lactic Acid 1.9 (0.4-2.0) mmol/L Calcium 8.3 L (8.5-10.1) mg/dL Magnesium 1.9 (1.8-2.4) mg/dL Total Bilirubin 0.4 (0.2-1.0) mg/dL AST 26 (15-37) U/L ALT 24 (14-59) U/L Alkaline Phosphatase 237 H (46-116) U/L Troponin I < 0.017 (0.000-0.056) ng/mL B-Natriuretic Peptide 2950 H (0-100) pg/ml Total Protein 7.3 (6.4-8.2) g/dL Albumin 1.8 L (3.4-5.0) g/dL Globulin 5.5 Albumin/Globulin Ratio 0.33 Meds: Medications Generic Name Dose Route Start Last Admin Trade Name Freq PRN Reason Stop Dose Admin Sodium Chloride 1,000 mls @ 999 mls/hr 02/21/21 14:01 02/21/21 14:15 Normal Saline IV 02/21/21 15:01 999 mls/hr .BOLUS ONE Administration Discontinued Medications Generic Name Dose Route Start Last Admin Trade Name Freq PRN Reason Stop Dose Admin Clindamycin Phosphate 900 mg/ 106 mls @ 200 mls/hr 02/21/21 14:04 02/21/21 14 :14 Sodium Chloride IV 02/21/21 14:35 200 mls/hr ONETIME ONE Administration - Re-Assessments/Exams Free Text/Narrative Re-Assessment/Exam: 02/21/21 I personally performed or re-performed the physical examination and medical decision making. I have verified all student documentation or findings, including history, physical exam and/or medical decision making. Sepsis Event Note (ED) - Focused Exam Vital Signs: Vital Signs Temp Pulse Resp BP Pulse Ox 02/21/21 13:22 98 F 83 22 H 119/61 95
[2021-02-21 13:42] VITALS: BP 119/61; PULSE 83
[2021-02-21] MEDS ORDERED: Sodium Chloride 0.9% 1,000 ML IV ONE (14:01)
[2021-02-21] MEDS ORDERED: Clindamycin Phosphate 900 MG in Sodium Chloride 0.9% 100 ML IV ONE (14:04)
[2021-02-21 14:08] LABS: CHLORIDE,CL 94 mmol/L (98-107); SODIUM,NA 132 mmol/L (136-145)
[2021-02-21 15:37] LABS: CORONAVIRUS COVID-19 NAA NEGATIVE (NEGATIVE)
== END 2021-02-21 15:19 | disposition home or self-care (01) ==
LOC: DL.ED 13:08
DX: A41.9 Sepsis, unspecified organism (principal); R65.21 Severe sepsis with septic shock; N17.9 Acute kidney failure, unspecified; L03.115 Cellulitis of right lower limb; I48.91 Unspecified atrial fibrillation; I25.10 Atherosclerotic heart disease of native coronary artery without angina pectoris; E78.00 Pure hypercholesterolemia, unspecified; I11.0 Hypertensive heart disease with heart failure; I50.9 Heart failure, unspecified; J44.9 Chronic obstructive pulmonary disease, unspecified; K21.9 Gastro-esophageal reflux disease without esophagitis; M19.90 Unspecified osteoarthritis, unspecified site; E11.40 Type 2 diabetes mellitus with diabetic neuropathy, unspecified; E66.9 Obesity, unspecified; Z68.41 Body mass index [BMI] 40.0-44.9, adult; Z88.1 Allergy status to other antibiotic agents; Z91.048 Other nonmedicinal substance allergy status; Z88.5 Allergy status to narcotic agent; Z88.0 Allergy status to penicillin; Z79.82 Long term (current) use of aspirin; Z79.01 Long term (current) use of anticoagulants; Z79.899 Other long term (current) drug therapy; Z86.73 Personal history of transient ischemic attack (TIA), and cerebral infarction without residual deficits; Z20.822 Contact with and (suspected) exposure to COVID-19
CPT/HCPCS: 0240U; 36415; 80053; 82140; 83605; 83735; 83880; 84484; 85025; 87040; 87070; 87077; 87186; 87205; 93005; 93010; 96365; 99284; 99285; J3490; J7030